=== PATIENT | female | born 1980 | race American Indian/Alaskan Native ===

== ENCOUNTER 2016-05-24 12:55 | Emergency (ER) | payer MEDICAID ==
[2016-05-24 13:14] VITALS: BP 127/95
--- NOTE | 2016-05-24 13:56 | Emergency Department Report ---
Entered by POLLY LAI, acting as scribe for SONIDO CARBALLO NP. Chief Complaint: Dyspnea/Respdistress Stated Complaint: BACK PAIN/DIFF BREATHING/FINGERS TINGLING - HPI History of Present Illness: Patient with a PMHx of DVT and PE presents to the ED c/o left back pain. Notes pain worsens with inspiration and expiration. Denies chest pain and SOB. - ROS Review of Systems: All other systems reviewed are negative unless stated in HPI above. - Exam Vital Signs: Vital Signs 05/24/16 13:12 Temperature 98.4 F Pulse Rate 75 Respiratory 16 Rate Blood Pressure 127/95 O2 Sat by Pulse 100 Oximetry Physical Exam: General: alert and oriented x 3 MSE screening note: Focused history and physical exam performed. Due to findings the following was ordered: HX PE AND DVT SCHEDULED FOR FILTER NEXT MONTH HAVING VAG BLEED FOR MONTHS THEY STARTED HER ON NUMEROUS HORMONES AND TRIED SEVERAL STILL BLEEDING SO SURG NEXT WEEK A/C ANEMIA PLEURTIC CP ST SAT OK DISCUSSED W DR JANSEN ED Medical Decision Making - Medical Decision Making Patient seen by provider in triage area. ED Disposition for MSE Condition: Stable This documentation as recorded by the scribe,POLLY LAI,accurately reflects the service I personally performed and the decisions made by me,SONIDO ARRIAGA NP.
[2016-05-24 14:41] LABS: Basophils % (Auto) 0.7 % (0.0-1.8); Eosinophils % (Auto) 3.8 % (0.0-4.3); Hematocrit 37.2 % (30.3-42.9); Mean Corpuscular HGB Conc 32 % (30-34); Mean Corpuscular Hemoglobin 27 pg (28-32); Mean Corpuscular Volume 83 fl (79-97); Platelet Count 349 K/mm3 (140-440); Red Blood Count 4.47 M/mm3 (3.65-5.03); Red Cell Distribution Width 14.6 % (13.2-15.2); White Blood Count 6.3 K/mm3 (4.5-11.0)
[2016-05-24 14:52] LABS: INR 0.99 (0.87-1.13); Partial Thromboplastin Time 32.4 Sec. (24.2-36.6)
[2016-05-24 15:02] LABS: Iron 33 ug/dL (37-170); Total Iron Binding Capacity 326 mcg/dL (250-450)
[2016-05-24 15:03] LABS: Alanine Aminotransferase 14 units/L (7-56); Albumin/Globulin Ratio 1.2 %; Alkaline Phosphatase 52 units/L (35-129); Anion Gap 17 mmol/L; BUN/Creatinine Ratio 6.66; Bilirubin,Total 0.4 mg/dL (0.1-1.2); Blood Urea Nitrogen 6 mg/dL (7-17); Calcium 9.3 mg/dL (8.4-10.2); Carbon Dioxide 23 mmol/L (22-30); Chloride 102.8 mmol/L (98-107); Glucose 122 mg/dL (65-100); Potassium 3.8 mmol/L (3.6-5.0); Sodium 139 mmol/L (137-145); Total Protein 7.4 g/dL (6.3-8.2)
== END 2016-05-24 17:40 | disposition left against medical advice (07) ==
LOC: ED 12:55
DX: M54.5 Low back pain (principal); R06.09 Other forms of dyspnea
CPT/HCPCS: 36415; 80053; 83550; 84484; 85025; 85610; 85730; 93005; 93010; 99283

== ENCOUNTER 2016-06-03 21:19 | Emergency (ER) | payer MEDICAID ==
--- NOTE | 2016-06-10 15:34 | ED Elopement Review ---
ED Pt Elopement review - Call Back decision Pt Call Back Decision: No action required
== END 2016-06-03 21:45 | disposition left against medical advice (07) ==
LOC: ED 21:19
DX: R10.9 Unspecified abdominal pain (principal); Z53.21 Procedure and treatment not carried out due to patient leaving prior to being seen by health care provider

== ENCOUNTER 2016-07-18 17:03 | Emergency (ER) | payer MEDICAID ==
--- NOTE | 2016-07-18 18:25 | Emergency Department Report ---
ED General Adult HPI - General Chief complaint: Urogenital-Female Stated complaint: PINCHING PAIN UNDER LT BREAST/NAUSEA Time Seen by Provider: 07/18/16 18:17 Source: patient Mode of arrival: Ambulatory Limitations: No Limitations - History of Present Illness Initial comments: Patient reports a pinching pain under the left breast that started two days ago. She also reports starting back on Lovenox 150 mg daily two days ago after not having Lovenox prescription for two weeks pending prior authorization from the insurance company. She has a history of DVTs' in the right lower extremity the last three years. She also reports a dry cough that started one week ago MD Complaint: chest pain Onset/Timin -: days(s) Location: chest Radiation: non-radiation Severity scale (0 -10): 0 Quality: other (pinching) Consistency: constant Improves with: none Worsens with: none Associated Symptoms: chest pain, cough. denies: confusion, diaphoresis, fever/ chills, headaches, loss of appetite, malaise, nausea/vomiting, rash, seizure, shortness of breath, syncope, weakness Treatments Prior to Arrival: other (Lovenox) - Related Data Home Medications Medication Instructions Recorded Confirmed Last Taken LORazepam [Ativan] 0.5 mg PO BID PRN 03/07/15 03/20/15 03/04/15 1mg busPIRone [Buspar] 10 mg PO TID 03/07/15 03/20/15 03/06/15 10mg Enoxaparin [Lovenox] 150 mg SQ BID 03/20/15 03/20/15 Unknown Previous Rx's Medication Instructions Recorded Last Taken Type predniSONE [Deltasone] 20 mg PO BID #10 tab 03/21/15 Unknown Rx Acetaminophen [Mapap] 500 mg PO QID #30 capsule 07/18/16 Unknown Rx guaiFENesin/DEXTROMETHORPHAN 1 each PO BID #10 tbmp.12hr 07/18/16 Unknown Rx [Mucinex Dm ER 1,200-60 mg Tab] Allergies Allergy/AdvReac Type Severity Reaction Status Date / Time iron dextran complex Allergy Severe Swelling Verified 01/04/15 23:30 carbamazepine [From Tegretol] Allergy Angioedema Verified 03/07/15 00:19 Iodinated Contrast Media - Allergy Rash Verified 01/04/15 23:30 IV Dye ED Review of Systems ROS: Stated complaint: PINCHING PAIN UNDER LT BREAST/NAUSEA Other details as noted in HPI Constitutional: denies: chills, diaphoresis, fever, malaise, weakness Eyes: denies: eye pain ENT: denies: ear pain, throat pain, dental pain, hearing loss, epistaxis Respiratory: cough. denies: orthopnea, shortness of breath, SOB with exertion, SOB at rest, stridor, wheezing Cardiovascular: chest pain. denies: palpitations, dyspnea on exertion, orthopnea, edema, syncope, paroxysmal nocturnal dyspnea Gastrointestinal: denies: abdominal pain, nausea, vomiting, diarrhea, constipation Musculoskeletal: denies: back pain, joint swelling, arthralgia, myalgia Skin: denies: rash, lesions Neurological: denies: headache, weakness, numbness, paresthesias, confusion Psychiatric: denies: anxiety, depression Hematological/Lymphatic: denies: easy bleeding, easy bruising, swollen glands ED Past Medical Hx - Past Medical History Previous Medical History?: Yes Hx CVA: Yes Hx Congestive Heart Failure: No Hx Diabetes: No Hx Deep Vein Thrombosis: Yes Hx Pulmonary Embolism: Yes Hx Psychiatric Treatment: Yes (bipolar disorder) Hx Asthma: No Hx COPD: No Additional medical history: Iron deficency anemia. ? LUPUS (uncertain of diagonsis) - Surgical History Past Surgical History?: Yes Hx Cholecystectomy: Yes Additional Surgical History: endometrial polyps - Social History Smoking Status: Former Smoker Substance Use Type: Prescribed - Medications Home Medications: Home Medications Medication Instructions Recorded Confirmed Last Taken Type LORazepam [Ativan] 0.5 mg PO BID PRN 03/07/15 03/20/15 03/04/15 History 1mg busPIRone [Buspar] 10 mg PO TID 03/07/15 03/20/15 03/06/15 History 10mg Enoxaparin [Lovenox] 150 mg SQ BID 03/20/15 03/20/15 Unknown History predniSONE [Deltasone] 20 mg PO BID #10 tab 03/21/15 Unknown Rx Acetaminophen [Mapap] 500 mg PO QID #30 capsule 07/18/16 Unknown Rx guaiFENesin/DEXTROMETHORPHAN 1 each PO BID #10 tbmp.12hr 07/18/16 Unknown Rx [Mucinex Dm ER 1,200-60 mg Tab] ED Physical Exam - General Limitations: No Limitations General appearance: alert, in no apparent distress - Head Head exam: Present: atraumatic, normocephalic, normal inspection - Eye Eye exam: Present: normal appearance, PERRL, EOMI Pupils: Present: normal accommodation - ENT ENT exam: Present: normal exam, normal orophraynx, mucous membranes moist. Absent: mucous membranes dry - Neck Neck exam: Present: normal inspection, full ROM. Absent: tenderness, meningismus, lymphadenopathy, thyromegaly - Respiratory Respiratory exam: Present: normal lung sounds bilaterally, chest wall tenderness (left chest wall beneath left breast). Absent: respiratory distress , wheezes, rales, rhonchi, stridor, accessory muscle use, decreased breath sounds, prolonged expiratory - Cardiovascular Cardiovascular Exam: Present: regular rate, normal rhythm, normal heart sounds. Absent: systolic murmur, gallop, clicks, JVD, S3, S4 - Expanded Cardiovascular Exam Expanded Peripheral pulses: 2+: Carotid (R), Carotid (L), Radial (R), Radial (L), Femoral (R), Femoral (L), Posterior Tibialis (R), Posterior Tibialis (L), Dorsalis Pedis (R), Dorsalis Pedis (L) - GI/Abdominal GI/Abdominal exam: Present: soft, normal bowel sounds. Absent: distended, tenderness, guarding, rigid - Extremities Exam Extremities exam: Present: normal inspection, full ROM, normal capillary refill. Absent: tenderness, pedal edema, joint swelling - Back Exam Back exam: Present: normal inspection, full ROM. Absent: CVA tenderness (R), CVA tenderness (L) - Neurological Exam Neurological exam: Present: alert, oriented X3, CN II-XII intact, normal gait, reflexes normal. Absent: motor sensory deficit - Psychiatric Psychiatric exam: Present: normal affect, normal mood - Skin Skin exam: Present: warm, dry, intact, normal color. Absent: rash ED Course Vital Signs 07/18/16 07/18/16 07/18/16 17:14 19:30 21:05 Temperature 98.2 F Pulse Rate 92 H 83 Respiratory 16 18 16 Rate Blood Pressure 110/81 Blood Pressure 111/75 [Left] O2 Sat by Pulse 100 98 Oximetry - Reevaluation(s) Reevaluation #1: 07/18/16 19:49 laboratory and radiology studies ordered ED Medical Decision Making - Lab Data Result diagrams: 07/18/16 19:04 07/18/16 19:04 Lab Results 07/18/16 07/18/16 Range/Units 19:04 19:04 WBC 6.3 (4.5-11.0) K/mm3 RBC 4.57 (3.65-5.03) M/mm3 Hgb 11.8 (10.1-14.3) gm/dl Hct 37.1 (30.3-42.9) % MCV 81 (79-97) fl MCH 26 L (28-32) pg MCHC 32 (30-34) % RDW 15.3 H (13.2-15.2) % Plt Count 337 (140-440) K/mm3 Carbon Dioxide 27 (22-30) mmol/L BUN 7 (7-17) mg/dL Creatinine 0.8 (0.7-1.2) mg/dL Estimated GFR > 60 ml/min BUN/Creatinine Ratio 8.75 % Glucose 94 (65-100) mg/dL Calcium 9.0 (8.4-10.2) mg/dL Total Bilirubin 0.70 (0.1-1.2) mg/dL AST 18 (5-40) units/L ALT 16 (7-56) units/L Alkaline Phosphatase 48 (35-129) units/L Total Creatine Kinase 335 H (30-135) units/L Troponin T < 0.010 (0.00-0.029) ng/mL Total Protein 6.6 (6.3-8.2) g/dL Albumin 4.0 (3.9-5) g/dL Albumin/Globulin Ratio 1.5 % - EKG Data EKG shows normal: sinus rhythm Rate: normal - EKG Data When compared to previous EKG there are: no significant change 07/18/16 21:00 No STEMI - Radiology Data Radiology results: image reviewed HISTORY: left chest pain/ hx DVT COMPARISON: 04/17/2016 FINDINGS: Heart and pericardium: Normal. Thoracic aorta: No aneurysm or dissection. Pulmonary vasculature: Normal. Lymph nodes: No enlarged thoracic lymph nodes. Lungs: There is a 3 millimeter nodule at the right posterior costophrenic sulcus. No infiltrates are seen. Pleural space: No effusion, thickening, or pneumothorax. Musculoskeletal structures: No significant abnormality. Upper abdominal structures: There is stable coarse calcification in the right hepatic lobe. IMPRESSION: No evidence of pulmonary emboli. There is coarse calcification in the right hepatic lobe, of uncertain etiology. No enhancement is seen. If there is concern for hepatic pathology, dedicated imaging could be obtained. - Medical Decision Making During the course of ED, laboratory and radiology studies were ordered. The EKG revealed no ST depression or elevation. The imaging study showed no evidence of pulmonary emboli. Laboratory studies were unremarkable. Patient was sent home with a prescription for Tylenol ES and Mucinex DM, instructed to follow up with her PCP as scheduled. She verbalized understanding - Differential Diagnosis Chest Pain, PE Critical care attestation.: If time is entered above; I have spent that time in minutes in the direct care of this critically ill patient, excluding procedure time. ED Disposition Clinical Impression: Chest pain Qualifiers: Chest pain type: other chest pain Qualified Code(s): R07.89 - Other chest pain Disposition: DC-01 TO HOME OR SELFCARE Is pt being admited?: No Does the pt Need Aspirin: No Condition: Stable Instructions: Chest Pain (ED) Additional Instructions: Take medication as directed. Follow up with your PCP as scheduled Prescriptions: Acetaminophen [Mapap] 500 mg PO QID #30 capsule guaiFENesin/DEXTROMETHORPHAN [Mucinex Dm ER 1,200-60 mg Tab] 1 each PO BID #10 tbmp.12hr Referrals: PRIMARY CARE, [Primary Care Provider] - 3-5 Days Forms: Work/School Release Form(ED) Time of Disposition: 20:59
[2016-07-18 19:23] LABS: Hematocrit 37.1 % (30.3-42.9); Hemoglobin 11.8 gm/dl (10.1-14.3); Mean Corpuscular HGB Conc 32 % (30-34); Mean Corpuscular Volume 81 fl (79-97); Platelet Count 337 K/mm3 (140-440); Red Blood Count 4.57 M/mm3 (3.65-5.03); Red Cell Distribution Width 15.3 % (13.2-15.2); White Blood Count 6.3 K/mm3 (4.5-11.0)
[2016-07-18 19:24] LABS: Mean Corpuscular Hemoglobin 26 pg (28-32)
[2016-07-18 19:39] LABS: Alanine Aminotransferase 16 units/L (7-56); Albumin/Globulin Ratio 1.5 %; Alkaline Phosphatase 48 units/L (35-129); Anion Gap 16 mmol/L; BUN/Creatinine Ratio 8.75; Blood Urea Nitrogen 7 mg/dL (7-17); Carbon Dioxide 27 mmol/L (22-30); Chloride 104.3 mmol/L (98-107); Creatine Kinase 335 units/L (30-135); Glucose 94 mg/dL (65-100); Potassium 4.7 mmol/L (3.6-5.0); Sodium 143 mmol/L (137-145); Total Protein 6.6 g/dL (6.3-8.2)
[2016-07-18] MEDS: NACL ONE (20:27)
--- NOTE | 2016-07-18 20:44 | Cat Scan Report ---
FINAL REPORT PROCEDURE: CT ANGIO CHEST TECHNIQUE: Computerized tomographic angiography of the chest was performed after the IV injection of iodinated nonionic contrast including image processing. The image data was postprocessed using 2-dimensional multiplanar reformatted (MPR) and 3-dimensional (MIP and/or volume rendered) techniques. HISTORY: left chest pain/ hx DVT COMPARISON: 04/17/2016 FINDINGS: Heart and pericardium: Normal. Thoracic aorta: No aneurysm or dissection. Pulmonary vasculature: Normal. Lymph nodes: No enlarged thoracic lymph nodes. Lungs: There is a 3 millimeter nodule at the right posterior costophrenic sulcus. No infiltrates are seen. Pleural space: No effusion, thickening, or pneumothorax. Musculoskeletal structures: No significant abnormality. Upper abdominal structures: There is stable coarse calcification in the right hepatic lobe. IMPRESSION: No evidence of pulmonary emboli. There is coarse calcification in the right hepatic lobe, of uncertain etiology. No enhancement is seen. If there is concern for hepatic pathology, dedicated imaging could be obtained.
[2016-07-18 21:07] VITALS: BP 111/75
== END 2016-07-18 21:05 | disposition home or self-care (01) ==
LOC: ED 17:03
DX: R07.89 Other chest pain (principal); Z86.73 Personal history of transient ischemic attack (TIA), and cerebral infarction without residual deficits; Z86.711 Personal history of pulmonary embolism; Z87.891 Personal history of nicotine dependence
CPT/HCPCS: 36415; 71275; 80053; 82550; 84484; 85027; 93005; 93010; 99284; Q9967

== ENCOUNTER 2016-08-31 15:30 | Emergency (ER) | payer MEDICAID, OTHER ==
--- NOTE | 2016-08-31 15:57 | Emergency Department Report ---
Chief Complaint: Arrhythmia/Palpitations Stated Complaint: TACHYCARDIA/SOB/COUGH Time Seen by Provider: 08/31/16 15:53 - HPI History of Present Illness: PT c/o palpitations since last night. PT States she has a hx of PEs. PT states she switched from Lovenox to Eliquis 3 days ago. - ROS Review of Systems: + mild sob - chest pain - Exam Vital Signs: Vital Signs 08/31/16 15:46 Temperature 98.1 F Respiratory 20 Rate Blood Pressure 156/90 O2 Sat by Pulse 100 Oximetry Physical Exam: PT looks well, non toxic steady gait + tachycardia MSE screening note: Focused history and physical exam performed. Due to findings the following was ordered: ekg, labs, xr ED Disposition for MSE Condition: Stable
[2016-08-31 16:18] LABS: Basophils % (Auto) 0.6 % (0.0-1.8); Eosinophils % (Auto) 0.7 % (0.0-4.3); Hematocrit 36.8 % (30.3-42.9); Mean Corpuscular HGB Conc 33 % (30-34); Mean Corpuscular Hemoglobin 27 pg (28-32); Mean Corpuscular Volume 82 fl (79-97); Platelet Count 372 K/mm3 (140-440); Red Blood Count 4.51 M/mm3 (3.65-5.03); Red Cell Distribution Width 15.4 % (13.2-15.2); White Blood Count 7.5 K/mm3 (4.5-11.0)
[2016-08-31 16:29] LABS: INR 1.01 (0.87-1.13)
[2016-08-31 16:30] LABS: Partial Thromboplastin Time 31.2 Sec. (24.2-36.6)
[2016-08-31 16:37] LABS: Blood Urea Nitrogen 8 mg/dL (7-17); Calcium 9.1 mg/dL (8.4-10.2); Carbon Dioxide 24 mmol/L (22-30); Glucose 110 mg/dL (65-100)
[2016-08-31 16:38] LABS: Anion Gap 18 mmol/L; Chloride 100.7 mmol/L (98-107); Potassium 3.9 mmol/L (3.6-5.0); Sodium 139 mmol/L (137-145)
--- NOTE | 2016-08-31 16:47 | Emergency Department Report ---
ED Palpitations HPI - General Chief Complaint: Arrhythmia/Palpitations Stated Complaint: TACHYCARDIA/SOB/COUGH Time Seen by Provider: 08/31/16 15:53 Source: patient Mode of arrival: Ambulatory Limitations: No Limitations - History of Present Illness MD Complaint: rapid heart beat, "heart racing", irregular heart beat -: Last night Context: occured during rest Arrythmia History: on anti-coagulants Associated Symptoms: chest pain, shortness of breath. denies: syncope, near- syncope, nausea/vomiting - Related Data Home Medications Medication Instructions Recorded Confirmed Last Taken Apixaban [Eliquis] 2.5 mg PO QAM 08/31/16 08/31/16 08/31/16 Propranolol [Inderal] 10 mg PO DAILY 08/31/16 08/31/16 08/31/16 clonazePAM [ Klonopin] 0.5 mg PO BID 08/31/16 08/31/16 08/31/16 Allergies Allergy/AdvReac Type Severity Reaction Status Date / Time iron dextran complex Allergy Severe Swelling Verified 01/04/15 23:30 carbamazepine [From Tegretol] Allergy Angioedema Verified 03/07/15 00:19 Iodinated Contrast Media - Allergy Rash Verified 01/04/15 23:30 IV Dye ED Review of Systems ROS: Stated complaint: TACHYCARDIA/SOB/COUGH Other details as noted in HPI Comment: All other systems reviewed and negative Constitutional: denies: chills, diaphoresis, fever Respiratory: denies: cough, shortness of breath, SOB with exertion, wheezing Cardiovascular: palpitations. denies: chest pain, dyspnea on exertion, orthopnea Gastrointestinal: denies: nausea, vomiting Neurological: denies: headache ED Past Medical Hx - Past Medical History Previous Medical History?: Yes Hx CVA: Yes Hx Congestive Heart Failure: No Hx Diabetes: No Hx Deep Vein Thrombosis: Yes Hx Pulmonary Embolism: Yes Hx Psychiatric Treatment: Yes (bipolar disorder) Hx Asthma: No Hx COPD: No Additional medical history: Iron deficency anemia. ? LUPUS (uncertain of diagonsis). PE - Surgical History Past Surgical History?: Yes Hx Cholecystectomy: Yes Additional Surgical History: endometrial polyps - Social History Smoking Status: Never Smoker Substance Use Type: None - Medications Home Medications: Home Medications Medication Instructions Recorded Confirmed Last Taken Type Apixaban [Eliquis] 2.5 mg PO QAM 08/31/16 08/31/1608/31/17 History Propranolol [Inderal] 10 mg PO DAILY 08/31/16 08/31/16 08/31/16 History clonazePAM [ Klonopin] 0.5 mg PO BID 08/31/16 08/31/16 08/31/16 History ED Physical Exam - General Limitations: No Limitations General appearance: alert, in no apparent distress - Neck Neck exam: Present: normal inspection. Absent: tenderness, meningismus, thyromegaly - Respiratory Respiratory exam: Present: normal lung sounds bilaterally. Absent: respiratory distress, wheezes, rales, rhonchi - Cardiovascular Cardiovascular Exam: Present: tachycardia - GI/Abdominal GI/Abdominal exam: Present: soft. Absent: distended, tenderness, guarding - Extremities Exam Extremities exam: Absent: tenderness, normal capillary refill, pedal edema, calf tenderness - Neurological Exam Neurological exam: Present: alert, oriented X3, CN II-XII intact - Skin Skin exam: Present: warm, intact ED Course Vital Signs 08/31/16 15:46 Temperature 98.1 F Respiratory 20 Rate Blood Pressure 156/90 O2 Sat by Pulse 100 Oximetry - Reevaluation(s) Reevaluation #1: 08/31/16 20:04 Patient observed in the ER no arrythmia noticed on the lunchroom monitor. doppler rt LE is negative. VQ scan is normal. ED Medical Decision Making - Lab Data Result diagrams: 08/31/16 16:05 08/31/16 16:05 Critical care attestation.: If time is entered above; I have spent that time in minutes in the direct care of this critically ill patient, excluding procedure time. ED Disposition Clinical Impression: Chest pain, Palpitation Disposition: DC-01 TO HOME OR SELFCARE Is pt being admited?: No Does the pt Need Aspirin: No Condition: Stable Instructions: Chest Pain (ED) Referrals: PRIMARY CARE,MD [Primary Care Provider] - 3-5 Days
--- NOTE | 2016-08-31 19:04 | Nuclear Medicine Report ---
FINAL REPORT EXAM: NM LUNG SCAN PERF/VENT HISTORY: SOB H/O PE TECHNIQUE: Ventilation-perfusion scan Perfusion study performed following intravenous administration 5 millicuries technetium 99 MAA The ventilation study was performed with 15 millicuries of seen on Xe-133 PRIORS: None. FINDINGS: On perfusion study there is homogeneous distribution of the radiotracer. No perfusion abnormalities identified. On ventilation study there is homogeneous distribution normal washout. IMPRESSION: Normal. No scintigraphic evidence for acute pulmonary embolus
[2016-08-31 20:18] VITALS: BP 102/65
--- NOTE | 2016-09-01 07:33 | XRay Report ---
ROUTINE CHEST, TWO VIEWS: HISTORY: Palpitations. The trachea, heart, mediastinal contour, lung fuentes and bony thorax are unremarkable. No change since 10/1215. IMPRESSION: Unremarkable chest x-ray.
--- NOTE | 2016-09-01 08:00 | Vascular Lab Report ---
Right Lower Extremity Venous Duplex Study: Reason for Exam: Shortness of breath/history of pulmonary embolism. Comments on the Right: All veins visualized are freely compressible without evidence of internal echogenicity. Flow is spontaneous and phasic throughout. No evidence of acute or chronic thrombus is seen in any of the vessels visualized. Comments on the Left: A limited duplex study was done of the proximal veins of the left lower extremity. All veins visualized are freely compressible without evidence of internal echogenicity. Flow is spontaneous and phasic throughout. No evidence of acute or chronic thrombus is seen in any of the vessels visualized. Impression: No evidence of acute or chronic deep venous thrombosis in the right lower extremity.
== END 2016-08-31 20:40 | disposition home or self-care (01) ==
LOC: ED 15:30
DX: R07.9 Chest pain, unspecified (principal); R00.2 Palpitations; F31.9 Bipolar disorder, unspecified; D50.9 Iron deficiency anemia, unspecified; Z86.73 Personal history of transient ischemic attack (TIA), and cerebral infarction without residual deficits; Z86.718 Personal history of other venous thrombosis and embolism; Z91.041 Radiographic dye allergy status; Z88.8 Allergy status to other drugs, medicaments and biological substances; Z86.711 Personal history of pulmonary embolism
CPT/HCPCS: 36415; 71020; 78582; 80048; 84484; 85025; 85610; 85730; 93005; 93010; 93971; 99285; A9540; A9558

== ENCOUNTER 2016-11-02 11:28 | Emergency (ER) | payer SELFPAY ==
--- NOTE | 2016-11-02 12:06 | Emergency Department Report ---
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 PT states she feels her heart racing when she drives. - ROS Review of Systems: + anxiety + heart racing - Exam Vital Signs: Vital Signs 11/02/16 11:57 Temperature 98 F Pulse Rate 88 Respiratory 18 Rate Blood Pressure 118/77 O2 Sat by Pulse 100 Oximetry Physical Exam: pt alert and appropriate gcs 15 rrr MSE screening note: Focused history and physical exam performed. Due to findings the following was ordered: labs, ekg ED Disposition for MSE Condition: Stable
[2016-11-02 12:53] LABS: Basophils % (Auto) 0.8 % (0.0-1.8); Eosinophils % (Auto) 1.5 % (0.0-4.3); Hematocrit 38.2 % (30.3-42.9); Hemoglobin 12.3 gm/dl (10.1-14.3); Mean Corpuscular HGB Conc 32 % (30-34); Mean Corpuscular Hemoglobin 26 pg (28-32); Mean Corpuscular Volume 81 fl (79-97); Platelet Count 339 K/mm3 (140-440); Red Cell Distribution Width 15.1 % (13.2-15.2); White Blood Count 6.7 K/mm3 (4.5-11.0)
[2016-11-02 13:14] LABS: Alanine Aminotransferase 13 units/L (7-56); Albumin 3.9 g/dL (3.9-5); Albumin/Globulin Ratio 1.1 %; Alkaline Phosphatase 62 units/L (35-129); Anion Gap 18 mmol/L; BUN/Creatinine Ratio 11.42; Blood Urea Nitrogen 8 mg/dL (7-17); Calcium 9.2 mg/dL (8.4-10.2); Carbon Dioxide 22 mmol/L (22-30); Chloride 104.2 mmol/L (98-107); Glucose 103 mg/dL (65-100); Potassium 4.2 mmol/L (3.6-5.0); Sodium 140 mmol/L (137-145); Total Protein 7.3 g/dL (6.3-8.2)
[2016-11-02 15:55] VITALS: BP 112/69
[2016-11-02 16:08] LABS: Bilirubin,Urine NEG (Negative); Blood,Urine NEG (Negative); Ketones,Urine NEG (Negative); Leukocyte Esterase,Urine TR (Negative); Mucus,Urine FEW /HPF; Nitrite,Urine NEG (Negative); Protein,Urine <15 mg/dL mg/dL (Negative); RBC,Urine < 1.0 /HPF (0.0-6.0); Urobilinogen,Urine < 2.0 mg/dL (<2.0)
[2016-11-02 16:20] LABS: Urine Drugs of Abuse Note Disclamer
== END 2016-11-02 17:46 | disposition left against medical advice (07) ==
LOC: ED 11:28
DX: F41.9 Anxiety disorder, unspecified (principal); R00.0 Tachycardia, unspecified; Z53.21 Procedure and treatment not carried out due to patient leaving prior to being seen by health care provider
CPT/HCPCS: 36415; 80053; 80307; 81001; 84443; 84484; 84703; 85025; 93005; 93010; 99283

== ENCOUNTER 2017-01-19 11:00 | Outpatient (CLI) | payer MEDICAID | END 2017-01-19 11:01 | disposition home or self-care (01) | LOC: SLR 11:00 | PROVIDERS: ATTEND Otolaryngology | DX: G47.30 Sleep apnea, unspecified (principal); I27.20 Pulmonary hypertension, unspecified | CPT/HCPCS: G0399 ==

== ENCOUNTER 2017-02-19 18:39 | Emergency (ER) | payer MEDICAID ==
[2017-02-19 19:17] VITALS: BP 118/78
[2017-02-19 19:51] LABS: Basophils # (Auto) 0.1 K/mm3 (0.0-0.1); Basophils % (Auto) 0.8 % (0.0-1.8); Eosinophils # (Auto) 0.1 K/mm3 (0.0-0.4); Hematocrit 37.6 % (30.3-42.9); Hemoglobin 12.3 gm/dl (10.1-14.3); Lymphocytes # (Auto) 2.1 K/mm3 (1.2-5.4); Lymphocytes % (Auto) 27.8 % (13.4-35.0); Mean Corpuscular HGB Conc 33 % (30-34); Mean Corpuscular Hemoglobin 27 pg (28-32); Mean Corpuscular Volume 82 fl (79-97); Monocytes # (Auto) 0.6 K/mm3 (0.0-0.8); Monocytes % (Auto) 7.7 % (0.0-7.3); Platelet Count 329 K/mm3 (140-440); Red Blood Count 4.61 M/mm3 (3.65-5.03); Red Cell Distribution Width 14.4 % (13.2-15.2)
[2017-02-19 20:02] LABS: INR 0.9 (0.87-1.13)
[2017-02-19 20:03] LABS: Partial Thromboplastin Time 29.8 Sec. (24.2-36.6)
[2017-02-19 20:11] LABS: BUN/Creatinine Ratio 13; Blood Urea Nitrogen 9 mg/dL (7-17); Calcium 9.4 mg/dL (8.4-10.2); Hemolysis Index 14
== END 2017-02-19 21:20 | disposition left against medical advice (07) ==
LOC: ED 18:39
DX: R51 Headache (principal); R53.1 Weakness; Z53.21 Procedure and treatment not carried out due to patient leaving prior to being seen by health care provider
CPT/HCPCS: 36415; 80048; 84484; 85025; 85379; 85610; 85730; 93005; 93010

== ENCOUNTER → 2017-02-21 | Outpatient (CLI) | payer MEDICAID | LOC: SLR 11:00 | PROVIDERS: ATTEND Specialist | DX: G47.33 Obstructive sleep apnea (adult) (pediatric) (principal) | CPT/HCPCS: 95811 ==

== ENCOUNTER 2017-05-03 21:41 | Emergency (ER) | payer MEDICAID ==
[2017-05-03 22:01] VITALS: BP 135/79
== END 2017-05-04 03:45 | disposition left against medical advice (07) ==
LOC: ED 21:41
DX: R53.83 Other fatigue (principal); R42 Dizziness and giddiness; Z53.21 Procedure and treatment not carried out due to patient leaving prior to being seen by health care provider

== ENCOUNTER 2017-07-01 12:40 | Emergency (ER) | payer MEDICAID ==
[2017-07-01 12:49] VITALS: BP 133/85
[2017-07-01] MEDS ORDERED: ULTRAM PO ONE (16:22)
--- NOTE | 2017-07-01 16:33 | Emergency Department Report ---
HPI - General Chief Complaint: Extremity Problem,Nontraumatic Time Seen by Provider: 07/01/17 16:03 - HPI HPI: The patient is a 37-year-old female well known to his department, with a history of anxiety attacks, and who presents for evaluation of palpitations. The patient states that she is best palpitations since 2 AM this morning, pounding in quality, mild in severity, constant for hours, several resolving, currently completely resolved. She also has a secondary complaint of recurrence of right lower leg pain for the past 2 days, intermittent, mild, crampy in quality. The patient denies trauma to the chest or leg, fever, cough , dyspnea, chest pain, syncope, hemoptysis, abdominal pain, nausea, vomiting, dysuria, hematuria. ED Past Medical Hx - Past Medical History Hx CVA: Yes Hx Congestive Heart Failure: No Hx Diabetes: No Hx Deep Vein Thrombosis: Yes Hx Pulmonary Embolism: Yes Hx Psychiatric Treatment: Yes (bipolar disorder) Hx Asthma: No Hx COPD: No Additional medical history: Iron deficency anemia. ? LUPUS (uncertain of diagonsis). PE, endometriosis - Surgical History Hx Cholecystectomy: Yes Additional Surgical History: endometrial polyps - Social History Smoking Status: Never Smoker Substance Use Type: None - Medications Home Medications: Home Medications Medication Instructions Recorded Confirmed Last Taken Type Apixaban [Eliquis] 2.5 mg PO QAM 08/31/16 08/31/16 08/31/16 History Propranolol [Inderal] 10 mg PO DAILY 08/31/16 08/31/16 08/31/16 History clonazePAM [ Klonopin] 0.5 mg PO BID 08/31/16 08/31/16 08/31/16 History HYDROcodone/APAP 5-325 [[place] 1 each PO Q6HR PRN #10 tablet 07/01/17 Unknown Rx 5/325] ED Review of Systems ROS: Stated complaint: BILATERAL LEG SWELLING Other details as noted in HPI Constitutional: denies: fever ENT: denies: throat or neck pain Respiratory: denies: cough, shortness of breath Cardiovascular: reports plapitations denies: chest pain Endocrine: denies unexplained weight loss or gain Gastrointestinal: denies: abdominal pain, nausea Genitourinary: denies: dysuria Musculoskeletal: reports left leg pain and leg swelling Skin: denies: rash Neurological: denies: headache Hematological/Lymphatic: denies: easy bleeding or easy bruising Psych: denies sadness or hopelessness Physical Exam - Physical Exam Vital Signs: Vital Signs 07/01/17 12:45 Temperature 98.6 F Pulse Rate 82 Respiratory 16 Rate Blood Pressure 133/85 O2 Sat by Pulse 95 Oximetry Physical Exam: General: well-nourished, well-developed, no acute distress Head: Normocephalic, atraumatic Eyes: normal sclera ENT: Mucous membranes are pink and moist Neck: trachea midline, neck supple, No neck stiffness, no cervical adenopathy Respiratory: Breath sounds equal bilaterally, no wheezing, rales, or rhonchi Cardio: S1 and S2 present, no murmurs, rubs, gallops, capillary refill is brisk Abdomen: Normoactive bowel sounds, soft abdomen, no rigidity, no guarding or rebound tenderness Musc: pitting edema, mild right calf tenderness to palpation present, no ecchymosis, bruising, redness, swelling, fluctuance, leg compartments are soft and pliable, no signs of DVT or compartment syndrome Skin: No rash Neuro: no facial drooping, normal speech Psych: Normal affect ED Course Vital Signs 07/01/17 12:45 Temperature 98.6 F Pulse Rate 82 Respiratory 16 Rate Blood Pressure 133/85 O2 Sat by Pulse 95 Oximetry ED Medical Decision Making - Medical Decision Making The patient was seen and examined by myself. On initial evaluation, the patient was found to be in no distress. Evaluation orders were placed. Vital signs are all within normal limits. The patient is given pain medicine. Exam was negative for any signs suggestive of acute DVT. As patient is on a blood thinner, she will receive US of the right leg in the morning. As the patient has all normal vital signs, and has not spent any chest pain or dyspnea throughout today, and only has a space palpitations which resolved prior to arrival, blood work would not be done at this time. The patient was reevaluated and reported that their symptoms were improved. The patient is stable for discharge with outpatient follow-up. The patient is given follow-up and return instructions. The patient expressed understanding and agreed with the plan. The patient is discharged in stable condition. Critical care attestation.: If time is entered above; I have spent that time in minutes in the direct care of this critically ill patient, excluding procedure time. ED Disposition Clinical Impression: Pain in right lower leg, Heart palpitations Disposition: DC-01 TO HOME OR SELFCARE Is pt being admited?: No Does the pt Need Aspirin: No Condition: Stable Instructions: Musculoskeletal Pain (ED), Palpitations (ED) Referrals: RICCI CALVIN MD [Primary Care Provider] - 3-5 Days Time of Disposition: 16:33
== END 2017-07-01 16:45 | disposition home or self-care (01) ==
LOC: ED 12:40
DX: R00.2 Palpitations (principal); M79.661 Pain in right lower leg
CPT/HCPCS: 99282

== ENCOUNTER 2017-08-03 11:12 | Emergency (ER) | payer MEDICAID ==
[2017-08-03 11:57] LABS: Basophils # (Auto) 0.1 K/mm3 (0.0-0.1); Basophils % (Auto) 0.7 % (0.0-1.8); Eosinophils # (Auto) 0.1 K/mm3 (0.0-0.4); Eosinophils % (Auto) 1.5 % (0.0-4.3); Hematocrit 35.8 % (30.3-42.9); Hemoglobin 11.4 gm/dl (10.1-14.3); Lymphocytes # (Auto) 2.1 K/mm3 (1.2-5.4); Lymphocytes % (Auto) 28.2 % (13.4-35.0); Mean Corpuscular HGB Conc 32 % (30-34); Mean Corpuscular Volume 78 fl (79-97); Monocytes # (Auto) 0.6 K/mm3 (0.0-0.8); Monocytes % (Auto) 8.2 % (0.0-7.3); Platelet Count 333 K/mm3 (140-440); Red Blood Count 4.61 M/mm3 (3.65-5.03); Red Cell Distribution Width 16.1 % (13.2-15.2)
[2017-08-03 11:58] LABS: Mean Corpuscular Hemoglobin 25 pg (28-32)
[2017-08-03 12:06] LABS: BUN/Creatinine Ratio 10; Blood Urea Nitrogen 8 mg/dL (7-17); Calcium 9.4 mg/dL (8.4-10.2); Hemolysis Index 1; INR 0.89 (0.87-1.13)
[2017-08-03 12:07] LABS: Partial Thromboplastin Time 29.2 Sec. (24.2-36.6)
--- NOTE | 2017-08-03 14:33 | Emergency Department Report ---
HPI - General Chief Complaint: Dyspnea/Respdistress Time Seen by Provider: 08/03/17 12:26 - HPI HPI: Room 3 The patient is a 37-year-old female presenting with a chief complaint of palpitations and syncope. The patient states for the past 2 months she's had intermittent palpitations. The patient states yesterday while at a hairdressers getting her hair done she began to feel weak and then palpitations and she denies syncopal episode. Patient states she lost consciousness for 8-9 seconds. After she came to she states she felt fatigued for approximately 2-3 hours and her symptoms resolved. Patient denied ever having chest pain with the palpitations but admits to some shortness of breath. The patient states she had a normal stress test 2 years ago but never had a cardiac catheterization Location: Cardiovascular system Duration: [See above] Quality: Palpitations, fatigue Severity: Moderate Modifying factors: [see above] Context: [see above] Mode of transportation: [not driving] ED Past Medical Hx - Past Medical History Hx CVA: Yes Hx Deep Vein Thrombosis: Yes () Hx Pulmonary Embolism: Yes (2004) Hx Psychiatric Treatment: Yes (bipolar disorder) Additional medical history: Iron deficency anemia. ? LUPUS (uncertain of diagonsis). PE, endometriosis - Surgical History Hx Cholecystectomy: Yes Additional Surgical History: endometrial ablation - Family History Family history: other (daughter has PSVT) - Social History Smoking Status: Never Smoker Substance Use Type: None (denies illicit drug use), Alcohol (occasional) - Medications Home Medications: Home Medications Medication Instructions Recorded Confirmed Last Taken Type Apixaban [Eliquis] 2.5 mg PO BID 08/31/16 08/03/17 08/02/17 History clonazePAM [ Klonopin] 0.5 mg PO BID 08/31/16 08/03/17 08/02/17 History Levothyroxine [Synthroid] 100 mcg PO QAM 08/03/17 08/03/17 08/02/17 History Pravastatin Sodium [Pravastatin] 10 mg PO QHS 08/03/17 08/03/17 08/02/17 History ED Review of Systems ROS: Stated complaint: RAPID HEART BEAT, JITTERY Other details as noted in HPI Physical Exam - Physical Exam Vital Signs: Vital Signs 08/03/17 08/03/17 08/03/17 11:22 12:01 12:05 Temperature 98.3 F 99.1 F Pulse Rate 84 81 76 Respiratory 16 23 22 Rate Blood Pressure 126/89 Blood Pressure 113/76 [Left] O2 Sat by Pulse 96 100 100 Oximetry 08/03/17 08/03/17 08/03/17 12:16 12:30 12:45 Temperature Pulse Rate 77 Respiratory 20 Rate Blood Pressure 113/74 113/74 112/67 Blood Pressure [Left] O2 Sat by Pulse 100 100 99 Oximetry 08/03/17 08/03/17 08/03/17 13:00 13:15 13:30 Temperature Pulse Rate 79 80 78 Respiratory 9 L 9 L 19 Rate Blood Pressure 106/68 115/70 112/72 Blood Pressure [Left] O2 Sat by Pulse 99 100 100 Oximetry 08/03/17 08/03/17 13:45 14:00 Temperature Pulse Rate 68 90 Respiratory 22 13 Rate Blood Pressure 113/67 113/67 Blood Pressure [Left] O2 Sat by Pulse 99 94 Oximetry ED Course Vital Signs 08/03/17 08/03/17 08/03/17 11:22 12:01 12:05 Temperature 98.3 F 99.1 F Pulse Rate 84 81 76 Respiratory 16 23 22 Rate Blood Pressure 126/89 Blood Pressure 113/76 [Left] O2 Sat by Pulse 96 100 100 Oximetry 08/03/17 08/03/17 08/03/17 12:16 12:30 12:45 Temperature Pulse Rate 77 Respiratory 20 Rate Blood Pressure 113/74 113/74 112/67 Blood Pressure [Left] O2 Sat by Pulse 100 100 99 Oximetry 08/03/17 08/03/17 08/03/17 13:00 13:15 13:30 Temperature Pulse Rate 79 80 78 Respiratory 9 L 9 L 19 Rate Blood Pressure 106/68 115/70 112/72 Blood Pressure [Left] O2 Sat by Pulse 99 100 100 Oximetry 08/03/17 08/03/17 13:45 14:00 Temperature Pulse Rate 68 90 Respiratory 22 13 Rate Blood Pressure 113/67 113/67 Blood Pressure [Left] O2 Sat by Pulse 99 94 Oximetry ED Medical Decision Making - Lab Data Result diagrams: 08/03/17 11:37 08/03/17 11:37 Laboratory Tests 08/03/17 08/03/17 08/03/17 11:37 11:37 11:37 WBC RBC Hgb Hct MCV MCH MCHC RDW Plt Count Lymph % (Auto) Dale % (Auto) Eos % (Auto) Baso % (Auto) Lymph # Dale # Eos # Baso # Seg Neutrophils % Seg Neutrophils # PT 12.5 INR 0.89 APTT 29.2 D-Dimer Sodium 140 Potassium 4.0 Chloride 104.9 Carbon Dioxide 28 Anion Gap 11 BUN 8 Creatinine 0.8 Estimated GFR > 60 BUN/Creatinine Ratio 10 Glucose 92 Calcium 9.4 HCG, Qual Negative 08/03/17 08/03/17 11:37 11:37 WBC 7.5 RBC 4.61 Hgb 11.4 Hct 35.8 MCV 78 L MCH 25 L MCHC 32 RDW 16.1 H Plt Count 333 Lymph % (Auto) 28.2 Dale % (Auto) 8.2 H Eos % (Auto) 1.5 Baso % (Auto) 0.7 Lymph # 2.1 Dale # 0.6 Eos # 0.1 Baso # 0.1 Seg Neutrophils % 61.4 Seg Neutrophils # 4.6 PT INR APTT D-Dimer 357.42 H Sodium Potassium Chloride Carbon Dioxide Anion Gap BUN Creatinine Estimated GFR BUN/Creatinine Ratio Glucose Calcium HCG, Qual CK, CK-MB, troponin and thyroid panel are pending at this time - EKG Data -: EKG Interpreted by Me EKG shows normal: sinus rhythm Rate: normal - EKG Data When compared to previous EKG there are: previous EKG unavailable Interpretation: nonspecific ST-T wave riya (T-wave inversions inferiorly) - Radiology Data Radiology results: pending (CT angiogram chest), image reviewed (chest x-ray, CT chest) interpreted by me: Chest x-ray-no focal infiltrates, no pneumothorax - Differential Diagnosis PSVT, dysrhythmia, PE, ACS, hyperthyroidism Critical care attestation.: If time is entered above; I have spent that time in minutes in the direct care of this critically ill patient, excluding procedure time. ED Disposition Clinical Impression: Palpitations, Syncope Disposition: OP ADMIT IP TO THIS HOSP Is pt being admited?: Yes Does the pt Need Aspirin: Yes Condition: Fair Instructions: Syncope (ED) Referrals: PRIMARY CARE,MD [Primary Care Provider] - 3-5 Days Time of Disposition: 15:13 (Hospitalist notified (Dr Galaviz). ck, ckmb, tro, thyroid panel CT angio chest report pending)
--- NOTE | 2017-08-03 14:55 | Cat Scan Report ---
CTA CHEST: HISTORY: Shortness of breath, palpitations, syncope. COMPARISON: none. TECHNIQUE: Helical CT in 1.25mm intervals following IV contrast. Pulmonary embolus protocol. Sagittal and coronal reformatted images. Rotational MIP images. FINDINGS: Contrast bolus is satisfactory. No pulmonary embolus is identified. Thyroid gland: Normal. Tracheobronchial tree: Normal. Esophagus: Normal. Heart: Normal. Pericardium: Normal. Mediastinum: Normal. Lung Villa: normal. Pleural Spaces: Normal. Musculoskeletal: Normal. IMPRESSION: No evidence for pulmonary embolus. Unremarkable CT chest with contrast.
[2017-08-03 15:19] LABS: Creatine Kinase MB 2.8 ng/mL (0.0-4.0)
[2017-08-03 15:29] LABS: Free T4 (Free Thyroxine) 1.02 ng/dL (0.76-1.46)
--- NOTE | 2017-08-03 16:54 | XRay Report ---
FINAL REPORT EXAM: XR CHEST ROUTINE 2V HISTORY: Shortness of breath TECHNIQUE: Frontal and lateral views of the chest. PRIORS: Chest x-ray August 31, 2016. FINDINGS: Cardiac silhouette is within normal limits. There is no effusion. There is no pneumothorax. There is no consolidation. There are no suspicious osseous lesions. IMPRESSION: No acute cardiopulmonary findings.
[2017-08-03 19:09] VITALS: BP 133/79
== END 2017-08-03 18:30 | disposition admitted as inpatient to this hospital (09) ==
LOC: ED 11:12
DX: R00.2 Palpitations (principal); R55 Syncope and collapse; Z86.718 Personal history of other venous thrombosis and embolism; Z86.711 Personal history of pulmonary embolism; F31.9 Bipolar disorder, unspecified; M32.9 Systemic lupus erythematosus, unspecified; Z90.49 Acquired absence of other specified parts of digestive tract
CPT/HCPCS: 36415; 71046; 71275; 80048; 82550; 82553; 84439; 84443; 84484; 84703; 85025; 85379; 85610; 85730; 93005; 93010; 99285; Q9967

== ENCOUNTER 2017-09-29 11:19 | Emergency (ER) | payer MEDICAID ==
[2017-09-29 11:45] VITALS: BP 115/71
[2017-09-29] MEDS ORDERED: TYLENOL PO ONE (12:26)
--- NOTE | 2017-09-29 12:35 | Emergency Department Report ---
Blank Doc - Documentation Documentation: Patient is a 37-year-old female who is on eloquent secondary to PACs who states she's had a headache for the last 2 days. Patient states that she woke up with headache. She does not have a history of headaches. Patient denies any fevers or neck stiffness cough, congestion light sensitivity or sensitivity to noise. He states the headache is global frontal greater than back and is throbbing 8 out of 10. On brief focused physical exam patient has no sinus tenderness is no meningeal signs pupils are equal reactive to light she is alert and oriented 3. S2 be done patient also have urinalysis and test performed the patient be reassessed.
[2017-09-29 13:35] LABS: Bilirubin,Urine NEG (Negative); Blood,Urine NEG (Negative); Color,Urine Yellow (Yellow); Mucus,Urine FEW /HPF; Protein,Urine <15 mg/dL mg/dL (Negative)
[2017-09-29 13:49] LABS: HCG Qualitative,Urine Negative (Negative)
== END 2017-09-29 15:50 | disposition left against medical advice (07) ==
LOC: ED 11:19
DX: R51 Headache (principal); Z53.21 Procedure and treatment not carried out due to patient leaving prior to being seen by health care provider
CPT/HCPCS: 81001; 81025

== ENCOUNTER 2018-01-27 10:50 | Emergency (ER) | payer OTHER ==
[2018-01-27 11:08] VITALS: BP 115/72
[2018-01-27] MEDS ORDERED: DELTASONE PO ONE (12:21)
[2018-01-27] MEDS ORDERED: BENADRYL PO ONE (12:22)
[2018-01-27] MEDS ORDERED: PEPCID PO ONE (12:22)
--- NOTE | 2018-01-27 12:23 | Emergency Department Report ---
ED Allergic Reaction HPI - General Chief complaint: Allergic Reaction Stated complaint: SKIN RASH ALL OVER BODY Time Seen by Provider: 01/27/18 12:19 Source: patient Mode of arrival: Ambulatory Limitations: No Limitations - History of Present Illness MD Complaint: allergic reaction, hives -: Sudden Exposure: unknown Symptoms: rash, itching Severity: mild Treatment Prior to Arrival: benadryl Previous Allergy History: none - Related Data Home Medications Medication Instructions Recorded Confirmed Last Taken Apixaban [Eliquis] 2.5 mg PO BID 08/31/16 08/03/17 08/02/17 clonazePAM [ Klonopin] 0.5 mg PO BID 08/31/16 08/03/17 08/02/17 Levothyroxine [Synthroid] 100 mcg PO QAM 08/03/17 08/03/17 08/02/17 Pravastatin Sodium [Pravastatin] 10 mg PO QHS 08/03/17 08/03/17 08/02/17 Previous Rx's Medication Instructions Recorded Last Taken Type Levothyroxine [Synthroid] 150 mcg PO QAM #30 tablet 11/29/17 Unknown Rx Famotidine [Pepcid] 40 mg PO DAILY #10 tablet 01/27/18 Unknown Rx diphenhydrAMINE [Benadryl CAP] 50 mg PO Q8HR PRN #20 capsule 01/27/18 Unknown Rx predniSONE [Deltasone] 60 mg PO DAILY 4 Days tablet 01/27/18 Unknown Rx Allergies Allergy/AdvReac Type Severity Reaction Status Date / Time iron dextran complex Allergy Severe Swelling Verified 05/03/17 21:58 carbamazepine [From Tegretol] Allergy Angioedema Verified 05/03/17 21:58 ED Review of Systems ROS: Stated complaint: SKIN RASH ALL OVER BODY Other details as noted in HPI Comment: All other systems reviewed and negative Constitutional: denies: chills, fever Eyes: denies: eye pain, eye discharge, vision change ENT: denies: ear pain, throat pain Respiratory: denies: cough, shortness of breath, wheezing Cardiovascular: denies: chest pain, palpitations Endocrine: no symptoms reported Gastrointestinal: denies: abdominal pain, nausea, diarrhea Genitourinary: denies: urgency, dysuria, discharge Musculoskeletal: denies: back pain, joint swelling, arthralgia Skin: rash. denies: lesions Neurological: denies: headache, weakness, paresthesias Psychiatric: denies: anxiety, depression Hematological/Lymphatic: denies: easy bleeding, easy bruising ED Past Medical Hx - Past Medical History Hx CVA: Yes (2011 TIA) Hx Congestive Heart Failure: No Hx Diabetes: No Hx Deep Vein Thrombosis: Yes (x6) Hx Pulmonary Embolism: Yes (2005) Hx Psychiatric Treatment: Yes (bipolar disorder) Hx Asthma: No Hx COPD: No Additional medical history: Iron deficency anemia LUPUS. PE, endometriosis. hypothyroid - Surgical History Hx Cholecystectomy: Yes Additional Surgical History: endometrial ablation. D&C - Social History Smoking Status: Never Smoker Substance Use Type: None - Medications Home Medications: Home Medications Medication Instructions Recorded Confirmed Last Taken Type Apixaban [Eliquis] 2.5 mg PO BID 08/31/16 08/03/17 08/02/17 History clonazePAM [ Klonopin] 0.5 mg PO BID 08/31/16 08/03/17 08/02/17 History Levothyroxine [Synthroid] 100 mcg PO QAM 08/03/17 08/03/17 08/02/17 History Pravastatin Sodium [Pravastatin] 10 mg PO QHS 08/03/17 08/03/17 08/02/17 History Levothyroxine [Synthroid] 150 mcg PO QAM #30 tablet 11/29/17 Unknown Rx Famotidine [Pepcid] 40 mg PO DAILY #10 tablet 01/27/18 Unknown Rx diphenhydrAMINE [Benadryl CAP] 50 mg PO Q8HR PRN #20 capsule 01/27/18 Unknown Rx predniSONE [Deltasone] 60 mg PO DAILY 4 Days tablet 01/27/18 Unknown Rx ED Physical Exam - General Limitations: No Limitations General appearance: alert, in no apparent distress - Head Head exam: Present: atraumatic, normocephalic - Eye Eye exam: Present: normal appearance, PERRL, EOMI Pupils: Present: normal accommodation - ENT ENT exam: Present: normal exam, normal orophraynx, mucous membranes moist - Neck Neck exam: Present: normal inspection - Respiratory Respiratory exam: Present: normal lung sounds bilaterally. Absent: respiratory distress, wheezes, rales, rhonchi - Cardiovascular Cardiovascular Exam: Present: regular rate, normal rhythm. Absent: systolic murmur, diastolic murmur, rubs, gallop - GI/Abdominal GI/Abdominal exam: Present: soft, normal bowel sounds - Extremities Exam Extremities exam: Present: normal inspection, normal capillary refill - Back Exam Back exam: Present: normal inspection - Neurological Exam Neurological exam: Present: alert, oriented X3 - Psychiatric Psychiatric exam: Present: normal affect, normal mood - Skin Skin exam: Present: warm, dry, intact, normal color, rash, urticaria ED Course Vital Signs 01/27/18 11:04 Temperature 98.8 F Pulse Rate 89 Respiratory 18 Rate Blood Pressure 115/72 O2 Sat by Pulse 97 Oximetry - Reevaluation(s) Reevaluation #1: 01/27/18 15:55 Patient is felling much better. ED Medical Decision Making - Medical Decision Making Urticaria. Allergic Reaction. Critical care attestation.: If time is entered above; I have spent that time in minutes in the direct care of this critically ill patient, excluding procedure time. ED Disposition Clinical Impression: Urticaria Allergic reaction Qualifiers: Encounter type: initial encounter Qualified Code(s): T78.40XA - Allergy, unspecified, initial encounter Disposition: - TO HOME OR SELFCARE Is pt being admited?: No Does the pt Need Aspirin: No Condition: Stable Instructions: Urticaria (ED), Allergies (ED) Additional Instructions: Please follow up with Dr Alan on Tuesday morning. Return to the ED if your condition worsens. Prescriptions: diphenhydrAMINE [Benadryl CAP] 50 mg PO Q8HR PRN #20 capsule PRN Reason: Itching Famotidine [Pepcid] 40 mg PO DAILY #10 tablet predniSONE [Deltasone] 60 mg PO DAILY 4 Days tablet Referrals: LENORA HUNT MD [Primary Care Provider] - 3-5 Days RICCI ALAN MD [Staff Physician] - 3-5 Days Time of Disposition: 15:52
== END 2018-01-27 15:56 | disposition home or self-care (01) ==
LOC: ED 10:50
DX: L50.0 Allergic urticaria (principal); F31.9 Bipolar disorder, unspecified; Z86.73 Personal history of transient ischemic attack (TIA), and cerebral infarction without residual deficits; Z86.718 Personal history of other venous thrombosis and embolism; Z86.711 Personal history of pulmonary embolism; Z79.899 Other long term (current) drug therapy
CPT/HCPCS: 99282; J7512

== ENCOUNTER 2018-02-13 18:26 | Emergency (ER) | payer MEDICAID, OTHER ==
--- NOTE | 2018-02-13 18:33 | Emergency Department Report ---
HPI - General Time Seen by Provider: 02/13/18 18:28 - HPI HPI: 37-year-old -[place] female presents to the emergency department via EMS from home as a code stroke with complaint of some difficulty with speech, headache, dizziness and some left-sided weakness that started about one hour prior to arrival. The patient has a past medical history of hypertension, hypothyroidism, history of PE, lupus and a previous CVA/TIA without any residual deficits. The patient is awake and alert but has some difficulty expressing herself. She apparently called her boyfriend who noticed that she was talking funny and then called 911. ED Past Medical Hx - Past Medical History Hx CVA: Yes (2011 TIA) Hx Congestive Heart Failure: No Hx Diabetes: No Hx Deep Vein Thrombosis: Yes (x6) Hx Pulmonary Embolism: Yes (2004) Hx Psychiatric Treatment: Yes (bipolar disorder) Hx Asthma: No Hx COPD: No Additional medical history: Iron deficency anemia LUPUS. PE, endometriosis. hypothyroid - Surgical History Hx Cholecystectomy: Yes Additional Surgical History: endometrial ablation. D&C - Social History Smoking Status: Never Smoker Substance Use Type: None - Medications Home Medications: Home Medications Medication Instructions Recorded Confirmed Last Taken Type Apixaban [Eliquis] 2.5 mg PO BID 08/31/16 08/03/17 08/02/17 History clonazePAM [ Klonopin] 0.5 mg PO BID 08/31/16 08/03/17 08/02/17 History Levothyroxine [Synthroid] 100 mcg PO QAM 08/03/17 08/03/17 08/02/17 History Pravastatin Sodium [Pravastatin] 10 mg PO QHS 08/03/17 08/03/17 08/02/17 History Levothyroxine [Synthroid] 150 mcg PO QAM #30 tablet 11/29/17 Unknown Rx Famotidine [Pepcid] 40 mg PO DAILY #10 tablet 01/27/18 Unknown Rx diphenhydrAMINE [Benadryl CAP] 50 mg PO Q8HR PRN #20 capsule 01/27/18 Unknown Rx predniSONE [Deltasone] 60 mg PO DAILY 4 Days tablet 01/27/18 Unknown Rx ED Review of Systems ROS: Stated complaint: POSSIBLE STROKE Other details as noted in HPI Comment: All other systems reviewed and negative Constitutional: denies: chills, fever Eyes: denies: eye pain, vision change ENT: denies: ear pain, throat pain Respiratory: denies: cough, shortness of breath Cardiovascular: denies: chest pain, palpitations Gastrointestinal: denies: nausea, vomiting Genitourinary: denies: dysuria, discharge Musculoskeletal: denies: back pain, arthralgia Skin: denies: rash, lesions Neurological: headache, weakness ED Course - Consultations Consultation #1: 02/13/18 19:12 I spoke with the teleneurologist, Dr Loera, who is going to assess the patient by bus driver/monitor and call back with recommendations. 02/13/18 19:41 The telemedicine neurologist called back after doing an assessment of the patient and recommends a CT angiography of the head and neck. However the patient does not appear to be a TPA candidate as she is already anticoagulated on Eliquist. ED Medical Decision Making - Lab Data Result diagrams: 02/13/18 18:47 02/13/18 18:47 - EKG Data -: EKG Interpreted by Pa EKG shows normal: sinus rhythm, axis, intervals, QRS complexes, ST-T waves (flattening of T waves and a T-wave inversions in lead 3) Rate: normal - EKG Data When compared to previous EKG there are: previous EKG unavailable Interpretation: other (sinus rhythm, normal axis, normal intervals, flattening of the T waves to most leads with T wave inversion 23) - Radiology Data Radiology results: report reviewed EXAM: CT HEAD/BRAIN WO CON HISTORY: Stroke symptoms TECHNIQUE: 2.5 millimeter axial images from the skullbase to the vertex. Comparison: None FINDINGS: Visualization detail in the inferior frontal lobes, inferior temporal lobes and portions of the posterior fossa is limited by motion artifact. There is no definite evidence of an acute intracranial process and no evidence of intracranial hemorrhage or significant mass effect. The ventricles are normal size. The visualized portions of the orbits, paranasal and mastoid sinuses are unremarkable. The bony structures are unremarkable. IMPRESSION: 1. Study somewhat degraded by motion artifact. 2. No definite evidence of an acute intracranial process and no evidence of intracranial hemorrhage or mass effect. If there is a clinical suspicion of an acute intracranial process, MRI brain would be helpful for further evaluation. Transcribed By: ED Dictated By: LOPEZ WEBB MD Electronically Authenticated By: LOPEZ WEBB MD Signed Date/Time: 02/13/181906 EXAM: CT ANGIO NECK HISTORY: CVA TECHNIQUE: Following IV administration of 100 cc of Omnipaque 350 axial helical imaging was performed through the neck with maximum intensity projection images obtained. Comparison: CT angiogram brain also performed today FINDINGS: There is normal enhancement of the cervical carotid and vertebral arteries without evidence of occlusion, stenosis, dissection or aneurysm. The vertebral arteries are codominant. The cervical soft tissues are unremarkable. The bony structures are unremarkable. IMPRESSION: 1. No evidence of occlusion, stenosis, dissection or aneurysm of the cervical carotid and vertebral arteries. EXAM: CT ANGIO HEAD HISTORY: CVA TECHNIQUE: Following IV administration of 100 cc of Omnipaque 350 axial helical imaging was performed through the brain with maximum intensity projection images obtained. Comparison: Head CT also performed today FINDINGS: There is normal enhancement of the major intracranial arteries without evidence of occlusion, hemodynamically significant stenosis or aneurysm. There is normal enhancement of the major intracranial venous structures. IMPRESSION: 1. No evidence of occlusion, hemodynamically significant stenosis or aneurysm of the major intracranial arteries. Transcribed By: ED Dictated By: LOPEZ WEBB MD Electronically Authenticated By: LOPEZ WEBB MD Signed Date/Time: 02/13/182100 - Medical Decision Making Patient came in as a code stroke with some aphasia, dysarthria and some mild left-sided weakness. This gave her a 3 on the NIH stroke scale. CT head without contrast did not show any bleed, shift, mass, ischemia or any other acute process. Neurology was contacted and evaluated the patient via bus driver/monitor. The patient was not a TPA candidate as she was already on anticoagulation but the recommendation was made to get a CT angiography of the head and neck. This was done and it did not show any signs of any occlusion, thrombosis, aneurysm or any other acute process. Patient's labs were mostly unremarkable. Vital signs stable throughout her ED course. The plan was going to be to admit the patient to the hospital for MRI of the brain and further stroke workup. However when I went to reevaluate the patient and give her the angiography results, the patient had eloped from the emergency department. We were in contact with the patient after she left and the patient says that she has no interest in being admitted to the hospital and appears to understand the risks of leaving without any further evaluation. We tried to convince her to return but so far she has remained at home. - Differential Diagnosis CVA, TIA, conversion disorder, dysrhythmia, hypoglycemia Critical Care Time: Yes Critical care time in (mins) excluding proc time.: 35 Critical care attestation.: If time is entered above; I have spent that time in minutes in the direct care of this critically ill patient, excluding procedure time. Critical care time spent on this patient and doing her initial evaluation, multiple re-evaluations, ordering and interpretation of labs and imaging, discussion with the neurologist and the patient herself. Critical Care Time: 35 minutes ED Disposition Clinical Impression: CVA (cerebral vascular accident) Qualifiers: CVA mechanism: unspecified Qualified Code(s): I63.9 - Cerebral infarction, unspecified Disposition: ELOPED Is pt being admited?: No Condition: Serious Referrals: PRIMARY CARE, [Primary Care Provider] - 3-5 Days Time of Disposition: 22:07 - Assessment Assessment Interval: Baseline - Level of Consciousness 1a. Level of Consciousness: alert/keenly responsive - LOC Questions 1b. LOC Questions: answers both correctly - LOC Command 1c. LOC Commands: performs tasks correctly - Best Gaze 2. Best Gaze: normal - Visual 3. Visual: no visual loss - Facial Palsy 4. Facial Palsy: normal symmetrical movement - Motor Arm 5b. Motor Arm Right: no drift 5a. Motor Arm Left: no drift - Motor Leg 6b. Motor Leg Right: no drift 6a. Motor Leg Left: drift - Limb Ataxia 7. Limb Ataxia: absent - Sensory 8. Sensory: normal - Best Language 9. Best Language: mild/moderate aphasia - Dysarthria 10. Dysarthria: mild/moderate dysarthria - Extinction and Inattention 11. Extinction/Inattention: no abnormality - Scoring Total Score: 3 Stroke Severity: Minor Stroke
--- NOTE | 2018-02-13 19:07 | Cat Scan Report ---
FINAL REPORT EXAM: CT HEAD/BRAIN WO CON HISTORY: Stroke symptoms TECHNIQUE: 2.5 millimeter axial images from the skullbase to the vertex. Comparison: None FINDINGS: Visualization detail in the inferior frontal lobes, inferior temporal lobes and portions of the poste rior fossa is limited by motion artifact. There is no definite evidence of an acute intracranial process and no evidence of intracranial hemorr rhonda or significant mass effect. The ventricles are normal size. The visualized portions of the orbits, paranasal and mastoid sinuses are unremarkable. The bony structures are unremarkable. IMPRESSION: 1. Study somewhat degraded by motion artifact. 2. No definite evidence of an acute intracranial process and no evidence of intracranial hemorrhage o r mass effect. If there is a clinical suspicion of an acute intracranial process, MRI brain would be helpful for fur ther evaluation.
[2018-02-13 19:09] LABS: Basophils # (Auto) 0.1 K/mm3 (0.0-0.1); Basophils % (Auto) 0.8 % (0.0-1.8); Eosinophils # (Auto) 0.1 K/mm3 (0.0-0.4); Eosinophils % (Auto) 0.8 % (0.0-4.3); Hematocrit 36.8 % (30.3-42.9); Hemoglobin 11.7 gm/dl (10.1-14.3); Lymphocytes # (Auto) 1.7 K/mm3 (1.2-5.4); Lymphocytes % (Auto) 22.8 % (13.4-35.0); Mean Corpuscular HGB Conc 32 % (30-34); Mean Corpuscular Volume 75 fl (79-97); Monocytes # (Auto) 0.5 K/mm3 (0.0-0.8); Monocytes % (Auto) 6.5 % (0.0-7.3); Platelet Count 359 K/mm3 (140-440); Red Cell Distribution Width 16.7 % (13.2-15.2)
[2018-02-13 19:21] LABS: INR 0.99 (0.87-1.13)
[2018-02-13 19:22] LABS: Thrombin Time 16.3 Sec. (15.1-19.6)
[2018-02-13 19:27] LABS: Creatine Kinase MB 3.8 ng/mL (0.0-4.0)
[2018-02-13 19:29] LABS: Alanine Aminotransferase 19 units/L (7-56); Albumin 4.5 g/dL (3.9-5); BUN/Creatinine Ratio 9; Blood Urea Nitrogen 7 mg/dL (7-17); Calcium 9.5 mg/dL (8.4-10.2); Hemolysis Index 13
[2018-02-13 20:10] VITALS: BP 129/84
--- NOTE | 2018-02-13 21:01 | Cat Scan Report ---
FINAL REPORT EXAM: CT ANGIO HEAD HISTORY: CVA TECHNIQUE: Following IV administration of 100 cc of Omnipaque 350 axial helical imaging was performe d through the brain with maximum intensity projection images obtained. Comparison: Head CT also performed today FINDINGS: There is normal enhancement of the major intracranial arteries without evidence of occlusion, hemodyn amically significant stenosis or aneurysm. There is normal enhancement of the major intracranial venous structures. IMPRESSION: 1. No evidence of occlusion, hemodynamically significant stenosis or aneurysm of the major intracrani al arteries.
--- NOTE | 2018-02-13 21:03 | Cat Scan Report ---
FINAL REPORT EXAM: CT ANGIO NECK HISTORY: CVA TECHNIQUE: Following IV administration of 100 cc of Omnipaque 350 axial helical imaging was performe d through the neck with maximum intensity projection images obtained. Comparison: CT angiogram brain also performed today FINDINGS: There is normal enhancement of the cervical carotid and vertebral arteries without evidence of occlus ion, stenosis, dissection or aneurysm. The vertebral arteries are codominant. The cervical soft tissues are unremarkable. The bony structures are unremarkable. IMPRESSION: 1. No evidence of occlusion, stenosis, dissection or aneurysm of the cervical carotid and vertebral a rteries.
--- NOTE | 2018-02-14 01:56 | Consultation ---
The patient presented with EMS. Predominant complaint is dizziness and subjective weakness. Review of her CT shows no remarkable abnormalities, salazar white matter normal, ventricular cisterns normal in size and shape. No focal abnormalities are present. Neurologic examination is grossly unremarkable. ED physician will further evaluate the patient, communicated these results to the attending nurse at the time of presentation from the ED registration. I do not see any indication of any surgical lesion, acute changes on the CT. JOB# [id number] TRACY/NTS
== END 2018-02-13 21:30 | disposition left against medical advice (07) ==
LOC: ED 18:26
DX: I63.9 Cerebral infarction, unspecified (principal); F31.9 Bipolar disorder, unspecified; Z86.73 Personal history of transient ischemic attack (TIA), and cerebral infarction without residual deficits; Z86.718 Personal history of other venous thrombosis and embolism; Z86.711 Personal history of pulmonary embolism; Z86.2 Personal history of diseases of the blood and blood-forming organs and certain disorders involving the immune mechanism; Z90.49 Acquired absence of other specified parts of digestive tract; Z79.899 Other long term (current) drug therapy; Z88.8 Allergy status to other drugs, medicaments and biological substances
CPT/HCPCS: 36415; 70450; 70496; 70498; 80053; 82550; 82553; 82962; 84443; 84484; 85025; 85610; 85670; 85730; 86850; 86900; 86901; 93005; 93010; 99291; G0480; Q9967; 80320

== ENCOUNTER 2018-03-30 02:01 | Emergency (ER) | payer OTHER ==
[2018-03-30] MEDS ORDERED: ASPIRIN PO ONE (02:28)
[2018-03-30 02:43] LABS: Basophils % (Auto) 0.7 % (0.0-1.8); Eosinophils # (Auto) 0.1 K/mm3 (0.0-0.4); Hematocrit 33.9 % (30.3-42.9); Hemoglobin 10.9 gm/dl (10.1-14.3); Lymphocytes % (Auto) 32.8 % (13.4-35.0); Mean Corpuscular HGB Conc 32 % (30-34); Mean Corpuscular Volume 75 fl (79-97); Monocytes # (Auto) 0.4 K/mm3 (0.0-0.8); Monocytes % (Auto) 7.1 % (0.0-7.3); Platelet Count 358 K/mm3 (140-440); Red Blood Count 4.52 M/mm3 (3.65-5.03); Red Cell Distribution Width 16.6 % (13.2-15.2)
[2018-03-30 02:54] VITALS: BP 122/79
[2018-03-30 03:03] LABS: BUN/Creatinine Ratio 9; Blood Urea Nitrogen 6 mg/dL (7-17); Calcium 8.8 mg/dL (8.4-10.2); Hemolysis Index 4
--- NOTE | 2018-03-30 03:09 | Emergency Department Report ---
ED General Adult HPI - General Chief complaint: Chest Pain Stated complaint: CHEST PAIN INCREASED HEART RATE Time Seen by Provider: 03/30/18 03:00 Source: patient, RN notes reviewed, old records reviewed Mode of arrival: Ambulatory Limitations: No Limitations - History of Present Illness Initial comments: Primary care Dr.: Dr. Calvin Past medical history: Hypothyroidism, obesity, TIA, pulmonary embolus, lupus, endometriosis, currently on systemic anticoagulation; eliquis This is a 37-year-old female who presents to the emergency room with a sensation of resolved rapid heartbeat, and feeling of unease. The patient endorses compliance with her medications. She denies headache, neck pain, chest pain, abdominal pain or shortness of breath. The patient reports that she may have a history of anxiety, and felt like her anxiety was acting up. She denies recent road trips, surgeries, oral contraceptive use, hospitalizations. Contrary to what is documented in the triage note, the patient makes no complaint of chest pain or back pain or breast pain. -: Sudden Severity scale (0 -10): 4 Consistency: now resolved Improves with: none Worsens with: none - Related Data Home Medications Medication Instructions Recorded Confirmed Last Taken Apixaban [Eliquis] 2.5 mg PO BID 08/31/16 08/03/17 08/02/17 clonazePAM [ Klonopin] 0.5 mg PO BID 08/31/16 08/03/17 08/02/17 Levothyroxine [Synthroid] 100 mcg PO QAM 08/03/17 08/03/17 08/02/17 Pravastatin Sodium [Pravastatin] 10 mg PO QHS 08/03/17 08/03/17 08/02/17 Previous Rx's Medication Instructions Recorded Last Taken Type Levothyroxine [Synthroid] 150 mcg PO QAM #30 tablet 11/29/17 Unknown Rx Famotidine [Pepcid] 40 mg PO DAILY #10 tablet 01/27/18 Unknown Rx diphenhydrAMINE [Benadryl CAP] 50 mg PO Q8HR PRN #20 capsule 01/27/18 Unknown Rx predniSONE [Deltasone] 60 mg PO DAILY 4 Days tablet 01/27/18 Unknown Rx Allergies Allergy/AdvReac Type Severity Reaction Status Date / Time iron dextran complex Allergy Severe Swelling Verified 02/13/18 18:48 carbamazepine [From Tegretol] Allergy Angioedema Verified 02/13/18 18:48 ED Review of Systems ROS: Stated complaint: CHEST PAIN INCREASED HEART RATE Other details as noted in HPI Constitutional: malaise. denies: fever Eyes: denies: vision change ENT: denies: epistaxis Respiratory: denies: cough Cardiovascular: palpitations. denies: chest pain Gastrointestinal: denies: abdominal pain Genitourinary: denies: dysuria Musculoskeletal: denies: back pain, arthralgia, myalgia Skin: denies: lesions Neurological: weakness Psychiatric: anxiety ED Past Medical Hx - Past Medical History Previous Medical History?: Yes Hx CVA: Yes (2011 TIA) Hx Congestive Heart Failure: No Hx Diabetes: No Hx Deep Vein Thrombosis: Yes (x6) Hx Pulmonary Embolism: Yes (2004) Hx Psychiatric Treatment: Yes (bipolar disorder) Hx Asthma: No Hx COPD: No Additional medical history: Iron deficency anemia LUPUS. PE, endometriosis. hypothyroid - Surgical History Past Surgical History?: Yes Hx Cholecystectomy: Yes Additional Surgical History: endometrial ablation. D&C - Social History Smoking Status: Never Smoker Substance Use Type: None - Medications Home Medications: Home Medications Medication Instructions Recorded Confirmed Last Taken Type Apixaban [Eliquis] 2.5 mg PO BID 08/31/16 08/03/17 08/02/17 History clonazePAM [ Klonopin] 0.5 mg PO BID 08/31/16 08/03/17 08/02/17 History Levothyroxine [Synthroid] 100 mcg PO QAM 08/03/17 08/03/17 08/02/17 History Pravastatin Sodium [Pravastatin] 10 mg PO QHS 08/03/17 08/03/17 08/02/17 History Levothyroxine [Synthroid] 150 mcg PO QAM #30 tablet 11/29/17 Unknown Rx Famotidine [Pepcid] 40 mg PO DAILY #10 tablet 01/27/18 Unknown Rx diphenhydrAMINE [Benadryl CAP] 50 mg PO Q8HR PRN #20 capsule 01/27/18 Unknown Rx predniSONE [Deltasone] 60 mg PO DAILY 4 Days tablet 01/27/18 Unknown Rx ED Physical Exam - General Limitations: No Limitations General appearance: alert, in no apparent distress - Head Head exam: Present: atraumatic, normocephalic - Eye Eye exam: Present: normal appearance, EOMI. Absent: nystagmus - ENT ENT exam: Present: normal exam, normal orophraynx, mucous membranes moist, normal external ear exam - Neck Neck exam: Present: normal inspection, full ROM. Absent: tenderness, meningismus - Respiratory Respiratory exam: Present: normal lung sounds bilaterally. Absent: respiratory distress - Cardiovascular Cardiovascular Exam: Present: regular rate, normal rhythm, normal heart sounds. Absent: bradycardia, tachycardia, irregular rhythm, systolic murmur, diastolic murmur, rubs, gallop - GI/Abdominal GI/Abdominal exam: Present: soft. Absent: distended, tenderness, guarding, rebound, rigid, pulsatile mass - Extremities Exam Extremities exam: Present: normal inspection, full ROM, other (there is no palp able cord. There is a negative Homans sign.). Absent: normal capillary refill, pedal edema, joint swelling, calf tenderness - Back Exam Back exam: Present: normal inspection, full ROM. Absent: tenderness, CVA tenderness (R), paraspinal tenderness, vertebral tenderness - Neurological Exam Neurological exam: Present: alert, oriented X3, CN II-XII intact, normal gait, other (Extraocular movements intact. Tongue midline. No facial droop. Facial sensation intact to light touch in the V1, V2, V3 distribution bilaterally. 5 and 5 strength in 4 extremities.. Sensation is intact to light touch in 4 extremities.). Absent: motor sensory deficit - Psychiatric Psychiatric exam: Present: anxious - Skin Skin exam: Present: warm, dry, intact, normal color. Absent: rash ED Course Vital Signs 03/30/18 03/30/18 03/30/18 02:24 02:53 03:37 Temperature 98 F Pulse Rate 99 H 81 86 Respiratory 18 19 Rate Blood Pressure 125/82 Blood Pressure 122/79 [Left] O2 Sat by Pulse 99 98 Oximetry - Reevaluation(s) Reevaluation #1: 03/30/18 04:34 The patient has returned to the emergency room after reportedly going to jump start her car. Her laboratory studies, physical exam, EKG, vital signs unremarkable, unchanged from prior, and appear to be at baseline. The patient does not appear to have an emergent medical condition at this time, and she is suitable to follow up with an outpatient primary care doctor, and/or cardiol ogist. ED Medical Decision Making - Lab Data Result diagrams: 03/30/18 02:31 03/30/18 02:31 Vital Signs 03/30/18 03/30/18 03/30/18 02:24 02:53 03:37 Temperature 98 F Pulse Rate 99 H 81 86 Respiratory 18 19 Rate Blood Pressure 125/82 Blood Pressure 122/79 [Left] O2 Sat by Pulse 99 98 Oximetry Labs 03/30/18 03/30/18 03/30/18 02:31 02:31 02:31 WBC 6.0 RBC 4.52 Hgb 10.9 Hct 33.9 MCV 75 L MCH 24 L MCHC 32 RDW 16.6 H Plt Count 358 Lymph % (Auto) 32.8 Rabun % (Auto) 7.1 Eos % (Auto) 2.0 Baso % (Auto) 0.7 Lymph # 2.0 Rabun # 0.4 Eos # 0.1 Baso # 0.0 Seg Neutrophils % 57.4 Seg Neutrophils # 3.4 Sodium 139 Potassium 3.6 Chloride 103.2 Carbon Dioxide 23 Anion Gap 16 BUN 6 L Creatinine 0.7 Estimated GFR > 60 BUN/Creatinine Ratio 9 Glucose 109 H Calcium 8.8 Magnesium 1.80 Total Creatine Kinase 552 H Troponin T < 0.010 TSH Free T4 03/30/18 03/30/18 03:17 03:17 WBC RBC Hgb Hct MCV MCH MCHC RDW Plt Count Lymph % (Auto) Rabun % (Auto) Eos % (Auto) Baso % (Auto) Lymph # Rabun # Eos # Baso # Seg Neutrophils % Seg Neutrophils # Sodium Potassium Chloride Carbon Dioxide Anion Gap BUN Creatinine Estimated GFR BUN/Creatinine Ratio Glucose Calcium Magnesium Total Creatine Kinase Troponin T TSH 1.730 Free T4 1.26 - EKG Data -: EKG Interpreted by Ms EKG shows normal: sinus rhythm Rate: normal - EKG Data When compared to previous EKG there are: no significant change Interpretation: no acute changes, unchanged when compared t 03/30/18 04:10 Sinus, 86 bpm, normal axis, QTC 445 ms, nonspecific T-wave abnormality, abnormal EKG, not consistent with ST elevation myocardial infarction, appears unchanged from prior EKG from 02/13/2018. - Medical Decision Making Differential diagnosis, including but not limited to: Anxiety, electrolyte derangement, thyroid derangement, general medical evaluation Assessment and plan: 37-year-old female with complaint of painless palpitations, and weakness, now resolved. Clinically doubt pulmonary embolus as the patient is not tachycardic, not hypoxic, and endorses compliance with her medications. Her physical examination is unremarkable, screening laboratory studies unremarkable; troponin was sent prior to my evaluation. However, based off of the history and physical, I do not have a high suspicion for acute coronary syndrome, find the patient to be low risk by well's criteria and the JENNY score, heart score. The patient eloped from the emergency room before the completion of her evaluation. Critical care attestation.: If time is entered above; I have spent that time in minutes in the direct care of this critically ill patient, excluding procedure time. ED Disposition Clinical Impression: History of palpitations Disposition: - TO HOME OR SELFCARE Is pt being admited?: No Does the pt Need Aspirin: No Condition: Good Additional Instructions: Continue outpatient medications. Follow-up with the primary care doctor or dog catcher in the next 7-14 days. Return to the emergency room right away with new, worsening or different symptoms. Referrals: ANTHONY VANCE MD [Primary Care Provider] - 3-5 Days RICCI CALVIN MD [Staff Physician] - 3-5 Days [facility] [Provider Group] - 3-5 Days
== END 2018-03-30 05:00 | disposition home or self-care (01) ==
LOC: ED 02:01
DX: R00.2 Palpitations (principal); F31.9 Bipolar disorder, unspecified; E03.9 Hypothyroidism, unspecified; D50.9 Iron deficiency anemia, unspecified; Z86.73 Personal history of transient ischemic attack (TIA), and cerebral infarction without residual deficits; Z86.718 Personal history of other venous thrombosis and embolism; Z86.711 Personal history of pulmonary embolism; Z90.49 Acquired absence of other specified parts of digestive tract; Z88.8 Allergy status to other drugs, medicaments and biological substances
CPT/HCPCS: 36415; 80048; 82550; 83735; 84439; 84443; 84484; 85025; 93005; 93010

== ENCOUNTER 2018-04-07 00:59 | Emergency (ER) | payer OTHER ==
[2018-04-07 01:08] VITALS: BP 123/74
== END 2018-04-07 01:19 | disposition left against medical advice (07) ==
LOC: ED 00:59
DX: R53.83 Other fatigue (principal); Z53.21 Procedure and treatment not carried out due to patient leaving prior to being seen by health care provider

== ENCOUNTER 2018-05-30 11:28 | Emergency (ER) | payer OTHER, MEDICAID ==
--- NOTE | 2018-05-30 12:31 | Emergency Department Report ---
Chief Complaint: Shoulder Injury Stated Complaint: CHEST PAIN Time Seen by Provider: 05/30/18 12:28 - HPI History of Present Illness: ant chest pain worse w movement no sob no heart racing on eloquis 18 m hx htn hpld dvt pe endometrial ablation pernic. anemia mse completed MSE screening note: Focused history and physical exam performed. Due to findings the following was ordered: ED Disposition for MSE Condition: Stable
--- NOTE | 2018-05-30 13:14 | XRay Report ---
ROUTINE CHEST, TWO VIEWS: HISTORY: chest pain. The trachea, heart, mediastinal contour, lung fuentes and bony thorax are unremarkable. No significant change since 08/03/17. IMPRESSION: Unremarkable chest x-ray.
[2018-05-30 13:43] LABS: Hematocrit 33.6 % (30.3-42.9); Hemoglobin 10.7 gm/dl (10.1-14.3); Mean Corpuscular HGB Conc 32 % (30-34); Mean Corpuscular Volume 76 fl (79-97); Platelet Count 339 K/mm3 (140-440); Red Blood Count 4.41 M/mm3 (3.65-5.03)
[2018-05-30 14:09] LABS: Alanine Aminotransferase 19 units/L (7-56); Albumin 3.8 g/dL (3.9-5); BUN/Creatinine Ratio 10; Blood Urea Nitrogen 7 mg/dL (7-17); Calcium 8.9 mg/dL (8.4-10.2); Hemolysis Index 26
--- NOTE | 2018-05-30 16:11 | Emergency Department Report ---
ED Chest Pain HPI - General Chief Complaint: Shoulder Injury Stated Complaint: CHEST PAIN Time Seen by Provider: 05/30/18 12:28 Source: patient Mode of arrival: Ambulatory Limitations: No Limitations - History of Present Illness Initial Comments: This is a 37-year-old -[place] female who presents with chest pain that is worse with movement. Patient reports pain as a sharp tightness sensation for the past 4-5 days. Past medical history TIA, DVT, bipolar, anxiety, lupus, and iron deficiency anemia. Patient states she is currently taking eliquis. Patient states she is worried of a pulled muscle. She denies heavy lifting, swelling, bruising, shortness of breath, palpitations, dizziness, or nausea or vomiting. MD Complaint: chest pain Onset/Timin -: days(s) Onset: other (with movement) Pain Location: left chest Pain Radiation: none Severity: moderate Severity scale (0 -10): 6 Quality: tightness, other (pulling) Consistency: intermittent Improves With: nothing Worsens With: palpation, movement Other Symptoms: denies: cough, fever, syncope, rash, acid taste in mouth, leg swelling, palpitations, burping Treatments Prior to Arrival: none Aspirin use within the Past 7 Days: (0) No - Related Data On Oral Contraceptives: No Home Medications Medication Instructions Recorded Confirmed Last Taken Apixaban [Eliquis] 2.5 mg PO BID 08/31/16 08/03/17 08/02/17 clonazePAM [ Klonopin] 0.5 mg PO BID 08/31/16 08/03/17 08/02/17 Levothyroxine [Synthroid] 100 mcg PO QAM 08/03/17 08/03/17 08/02/17 Pravastatin Sodium [Pravastatin] 10 mg PO QHS 08/03/17 08/03/17 08/02/17 Previous Rx's Medication Instructions Recorded Last Taken Type Levothyroxine [Synthroid] 150 mcg PO QAM #30 tablet 11/29/17 Unknown Rx Famotidine [Pepcid] 40 mg PO DAILY #10 tablet 01/27/18 Unknown Rx diphenhydrAMINE [Benadryl CAP] 50 mg PO Q8HR PRN #20 capsule 01/27/18 Unknown Rx predniSONE [Deltasone] 60 mg PO DAILY 4 Days tablet 01/27/18 Unknown Rx Ibuprofen [Motrin 800 MG tab] 800 mg PO Q8HR PRN #20 tablet 05/30/18 Unknown Rx Allergies Allergy/AdvReac Type Severity Reaction Status Date / Time iron dextran complex Allergy Severe Swelling Verified 02/13/18 18:48 carbamazepine [From Tegretol] Allergy Angioedema Verified 02/13/18 18:48 Heart Score - HEART Score History: Moderately suspicious EKG: Normal Age: < 45 Risk factors: 1-2 risk factors Troponin: < normal limit HEART Score: 2 ED Review of Systems ROS: Stated complaint: CHEST PAIN Other details as noted in HPI Constitutional: denies: chills, fever Respiratory: denies: cough, shortness of breath, wheezing Cardiovascular: chest pain. denies: palpitations Gastrointestinal: denies: abdominal pain, nausea, diarrhea Skin: denies: rash, lesions Neurological: denies: headache, weakness, paresthesias Psychiatric: denies: anxiety, depression ED Past Medical Hx - Past Medical History Previous Medical History?: Yes Hx CVA: Yes (2011 TIA) Hx Congestive Heart Failure: No Hx Diabetes: No Hx Deep Vein Thrombosis: Yes (x6) Hx Pulmonary Embolism: Yes (2004) Hx Psychiatric Treatment: Yes (bipolar disorder) Hx Asthma: No Hx COPD: No Additional medical history: Iron deficency anemia LUPUS. PE, endometriosis. hypothyroid - Surgical History Hx Cholecystectomy: Yes Additional Surgical History: endometrial ablation. D&C - Social History Smoking Status: Never Smoker Substance Use Type: None - Medications Home Medications: Home Medications Medication Instructions Recorded Confirmed Last Taken Type Apixaban [Eliquis] 2.5 mg PO BID 08/31/16 08/03/17 08/02/17 History clonazePAM [ Klonopin] 0.5 mg PO BID 08/31/16 08/03/17 08/02/17 History Levothyroxine [Synthroid] 100 mcg PO QAM 08/03/17 08/03/17 08/02/17 History Pravastatin Sodium [Pravastatin] 10 mg PO QHS 08/03/17 08/03/17 08/02/17 History Levothyroxine [Synthroid] 150 mcg PO QAM #30 tablet 11/29/17 Unknown Rx Famotidine [Pepcid] 40 mg PO DAILY #10 tablet 01/27/18 Unknown Rx diphenhydrAMINE [Benadryl CAP] 50 mg PO Q8HR PRN #20 capsule 01/27/18 Unknown Rx predniSONE [Deltasone] 60 mg PO DAILY 4 Days tablet 01/27/18 Unknown Rx Ibuprofen [Motrin 800 MG tab] 800 mg PO Q8HR PRN #20 tablet 05/30/18 Unknown Rx ED Physical Exam - General Limitations: No Limitations General appearance: alert, in no apparent distress, obese - Respiratory Respiratory exam: Present: normal lung sounds bilaterally, chest wall tenderness (tenderness along the costochondral joint on left). Absent: respiratory distres s - Cardiovascular Cardiovascular Exam: Present: regular rate, normal rhythm. Absent: systolic murmur, diastolic murmur, rubs, gallop - GI/Abdominal GI/Abdominal exam: Present: soft, normal bowel sounds. Absent: distended, tenderness, guarding, rebound, rigid, organomegaly, mass - Neurological Exam Neurological exam: Present: alert, oriented X3 - Psychiatric Psychiatric exam: Present: normal affect, normal mood - Skin Skin exam: Present: warm, dry, intact, normal color. Absent: rash ED Course Vital Signs 05/30/18 05/30/18 12:27 16:42 Temperature 98.1 F 98.1 F Pulse Rate 86 83 Respiratory 16 16 Rate Blood Pressure 116/52 112/88 O2 Sat by Pulse 99 98 Oximetry JENNY score - Jenny Score Age > 65: (0) No Aspirin use within the Past 7 Days: (0) No 3 or more CAD Risk Factors: (0) No 2 or more Angina events in past 24 hrs: (0) No Known CAD with more than 50% Stenosis: (0) No Elevated Cardiac Markers: (0) No ST Deviation Greater than 0.5mm: (0) No JENNY Score: 0 ED Medical Decision Making - Lab Data Result diagrams: 05/30/18 13:22 05/30/18 13:22 Lab Results 05/30/18 05/30/18 05/30/18 Range/Units 13:22 13:22 16:05 WBC 6.7 (4.5-11.0) K/mm3 RBC 4.41 (3.65-5.03) M/mm3 Hgb 10.7 (10.1-14.3) gm/dl Hct 33.6 (30.3-42.9) % MCV 76 L (79-97) fl MCH 24 L (28-32) pg MCHC 32 (30-34) % RDW 17.0 H (13.2-15.2) % Plt Count 339 (140-440) K/mm3 Sodium 142 (137-145) mmol/L Potassium 4.2 (3.6-5.0) mmol/L Chloride 105.2 (98-107) mmol/L Carbon Dioxide 26 (22-30) mmol/L Anion Gap 15 mmol/L BUN 7 (7-17) mg/dL Creatinine 0.7 (0.7-1.2) mg/dL Estimated GFR > 60 ml/min BUN/Creatinine Ratio 10 % Glucose 109 H (65-100) mg/dL Calcium 8.9 (8.4-10.2) mg/dL Total Bilirubin 0.40 (0.1-1.2) mg/dL AST 25 (5-40) units/L ALT 19 (7-56) units/L Alkaline Phosphatase 69 (35-129) units/L Troponin T < 0.010 (0.00-0.029) ng/mL Total Protein 7.1 (6.3-8.2) g/dL Albumin 3.8 L (3.9-5) g/dL Albumin/Globulin Ratio 1.2 % - EKG Data -: No EKG Interpreted by Me (EKG Interpreted by Attending) EKG shows normal: sinus rhythm Rate: normal - Radiology Data Radiology results: report reviewed ROUTINE CHEST, TWO VIEWS: HISTORY: chest pain. The trachea, heart, mediastinal contour, lung fuentes and bony thorax are unremarkable. No significant change since 08/03/17. IMPRESSION: Unremarkable chest x-ray. - Medical Decision Making 37 y.o. female that presents with chest pain on left side of chest that is non- radiating for 4 days. Denies drug use, asthma, SOB, palpations, fever, or dyspnea. PMH of TIA, DVT, bipolar, anxiety, lupus, and iron deficiency anemia. Patient examined by me and in no acute distress. Vitals stable. Obtained CMP, CBC, troponin, and chest xray. All labs and CXR normal. Physical assessment findings of tenderness along costocondral joint on left. Start ibuprofen. Referral to cardiology if symptoms increase. Encouraged to follow up with primary care provider next week. Discharged home stable. Return to work tomorrow. Critical care attestation.: If time is entered above; I have spent that time in minutes in the direct care of this critically ill patient, excluding procedure time. ED Disposition Clinical Impression: Acute costochondritis, Left-sided chest wall pain Disposition: TO HOME OR SELFCARE Is pt being admited?: No Does the pt Need Aspirin: No Condition: Stable Instructions: Chest Pain (ED), Costochondritis (ED) Additional Instructions: Take ibuprofen as needed for pain control. Follow up with primary care provider in 24-72 hours. Return to ER if chest pain unresolved, shortness of breath, or difficulty breathing. Prescriptions: Ibuprofen [Motrin 800 MG tab] 800 mg PO Q8HR PRN #20 tablet PRN Reason: Pain , Severe (7-10) Referrals: [facility] [Provider Group] - 3-5 Days DARIA ROSA MD [Staff Physician] - 3-5 Days Forms: Work/School Release Form(ED) Time of Disposition: 17:49
[2018-05-30 16:48] VITALS: BP 112/88
== END 2018-05-30 18:05 | disposition home or self-care (01) ==
LOC: ED 11:28
DX: M94.0 Chondrocostal junction syndrome [Tietze] (principal); M32.9 Systemic lupus erythematosus, unspecified; D50.9 Iron deficiency anemia, unspecified; E03.9 Hypothyroidism, unspecified; Z86.718 Personal history of other venous thrombosis and embolism; Z88.8 Allergy status to other drugs, medicaments and biological substances; Z86.73 Personal history of transient ischemic attack (TIA), and cerebral infarction without residual deficits; Z90.49 Acquired absence of other specified parts of digestive tract; Z98.890 Other specified postprocedural states
CPT/HCPCS: 36415; 71046; 80053; 84484; 85027; 93005; 93010; 99284

== ENCOUNTER 2018-06-08 11:09 | Emergency (ER) | payer MEDICAID ==
[2018-06-08 11:28] VITALS: BP 128/86
--- NOTE | 2018-06-08 11:28 | Emergency Department Report ---
Blank Doc - Documentation Documentation: 37 y/o female with hx/o DVT comes back in for rt leg swelling and pain. Was s een last week for CP and was told if she had any swelling in her legs Hx/o to return to ER for further evaluation. No menses hx/o
[2018-06-08 12:11] LABS: Basophils # (Auto) 0.1 K/mm3 (0.0-0.1); Basophils % (Auto) 0.9 % (0.0-1.8); Eosinophils # (Auto) 0.4 K/mm3 (0.0-0.4); Eosinophils % (Auto) 5.5 % (0.0-4.3); Hemoglobin 10.5 gm/dl (10.1-14.3); Lymphocytes # (Auto) 1.5 K/mm3 (1.2-5.4); Lymphocytes % (Auto) 23.5 % (13.4-35.0); Mean Corpuscular HGB Conc 32 % (30-34); Mean Corpuscular Volume 76 fl (79-97); Monocytes # (Auto) 0.5 K/mm3 (0.0-0.8); Platelet Count 364 K/mm3 (140-440); Red Blood Count 4.35 M/mm3 (3.65-5.03); Red Cell Distribution Width 17.2 % (13.2-15.2)
[2018-06-08 12:24] LABS: Alanine Aminotransferase 25 units/L (7-56); Albumin 3.9 g/dL (3.9-5); BUN/Creatinine Ratio 7; Blood Urea Nitrogen 5 mg/dL (7-17); Calcium 8.7 mg/dL (8.4-10.2); Hemolysis Index 8
--- NOTE | 2018-06-08 14:36 | Cat Scan Report ---
CTA chest: History: Chest pain. Findings: There is no evidence of pulmonary embolism. No evidence of aortic aneurysm. No endobronchial or mediastinal mass or adenopathy. No pleural pericardial effusion. Normal lung parenchyma. No consolidation or discrete nodularity. Incidentally noted moderate size hiatal hernia. Impression: No evidence of pulmonary embolism. No acute lung changes. Incidentally noted moderate sized hiatal hernia.
--- NOTE | 2018-06-08 15:04 | Emergency Department Report ---
ED General Adult HPI - General Chief complaint: Extremity Injury, Lower Stated complaint: RT LEG/ANKLE SWELLING Time Seen by Provider: 06/08/18 11:41 Source: patient Mode of arrival: Ambulatory Limitations: No Limitations - History of Present Illness Initial comments: PCP LORENA ROBERSON Patient is a 37-year-old obese -[place] female who comes to the ER today complaining of a 1 day history of right lower extremity swelling. Patient has a history of DVT. Patient was treated for costochondritis last week. The pain has gotten any better. On admission to the ER patient is 99. Her oxygen saturation on room air is 98. At the time of admission she is complaining of no chest pain. 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 She is on Elavil was compliant per her history. Patient is in no distress on arrival. Patient has a history of DVTs and PE. She filled Coumadin treatment. She states that she developed clot on Coumadin. At that time she was placed on Lovenox and she developed hematomas of her abdomen. She was then changed to [place] had complications of bleeding. She has been on Elavil was for 16 months and has had no problems to this time. Other home medications include levothyroxine, clonazepam, pravastatin and a new medication which patient does not recall the name of for her urinary leaking. This medicine was started last week. Patient does not have menstrual periods because she's had an endometrial ablation. Past medical history positive for pernicious anemia, obesity, and ischemic CVA in 2011, hyperlipidemia, hypot hyroidism, DVT first diagnosed in 2007, PE diagnosed in 2014. Past surgical history includes cholecystectomy, , colposcopy, endometrial ablation. - Related Data Home Medications Medication Instructions Recorded Confirmed Last Taken Apixaban [Eliquis] 2.5 mg PO BID 08/31/16 08/03/17 08/02/17 clonazePAM [ Klonopin] 0.5 mg PO BID 08/31/16 08/03/17 08/02/17 Levothyroxine [Synthroid] 100 mcg PO QAM 08/03/17 08/03/17 08/02/17 Pravastatin Sodium [Pravastatin] 10 mg PO QHS 08/03/17 08/03/17 08/02/17 Previous Rx's Medication Instructions Recorded Last Taken Type Levothyroxine [Synthroid] 150 mcg PO QAM #30 tablet 11/29/17 Unknown Rx Famotidine [Pepcid] 40 mg PO DAILY #10 tablet 01/27/18 Unknown Rx diphenhydrAMINE [Benadryl CAP] 50 mg PO Q8HR PRN #20 capsule 01/27/18 Unknown Rx predniSONE [Deltasone] 60 mg PO DAILY 4 Days tablet 01/27/18 Unknown Rx Ibuprofen [Motrin 800 MG tab] 800 mg PO Q8HR PRN #20 tablet 05/30/18 Unknown Rx Allergies Allergy/AdvReac Type Severity Reaction Status Date / Time iron dextran complex Allergy Severe Swelling Verified 02/13/18 18:48 carbamazepine [From Tegretol] Allergy Angioedema Verified 02/13/18 18:48 ED Review of Systems ROS: Stated complaint: RT LEG/ANKLE SWELLING Other details as noted in HPI Comment: All other systems reviewed and negative ED Past Medical Hx - Past Medical History Hx CVA: Yes (2011 TIA) Hx Congestive Heart Failure: No Hx Diabetes: No Hx Deep Vein Thrombosis: Yes (x6) Hx Pulmonary Embolism: Yes (2004) Hx Psychiatric Treatment: Yes (bipolar disorder) Hx Asthma: No Hx COPD: No Additional medical history: Iron deficency anemia LUPUS DVT. PE, endometriosis. hypothyroid - Surgical History Hx Cholecystectomy: Yes Additional Surgical History: endometrial ablation. D&C - Family History Family history: no significant - Social History Smoking Status: Never Smoker Substance Use Type: None - Medications Home Medications: Home Medications Medication Instructions Recorded Confirmed Last Taken Type Apixaban [Eliquis] 2.5 mg PO BID 08/31/16 08/03/17 08/02/17 History clonazePAM [ Klonopin] 0.5 mg PO BID 08/31/16 08/03/17 08/02/17 History Levothyroxine [Synthroid] 100 mcg PO QAM 08/03/17 08/03/17 08/02/17 History Pravastatin Sodium [Pravastatin] 10 mg PO QHS 08/03/17 08/03/17 08/02/17 History Levothyroxine [Synthroid] 150 mcg PO QAM #30 tablet 11/29/17 Unknown Rx Famotidine [Pepcid] 40 mg PO DAILY #10 tablet 01/27/18 Unknown Rx diphenhydrAMINE [Benadryl CAP] 50 mg PO Q8HR PRN #20 capsule 01/27/18 Unknown Rx predniSONE [Deltasone] 60 mg PO DAILY 4 Days tablet 01/27/18 Unknown Rx Ibuprofen [Motrin 800 MG tab] 800 mg PO Q8HR PRN #20 tablet 05/30/18 Unknown Rx ED Physical Exam - General Limitations: No Limitations - Other Other exam information: WDWN patient in NAD VS per RN flow sheet Alert and oriented to person, place and time. S1-S2. No S3 or S4. No systolic or diastolic murmur. No JVD. RLE mild edema. dp plus 2 bilateral. neg hari bilateral Lungs clear to auscultation bilaterally anteriorly and posteriorly. Abdomen soft nontender bowel sounds 4. Moves all extremities well. Mood and affect appropriate. ED Course Vital Signs 06/08/18 06/08/18 11:24 11:33 Temperature 98.5 F Pulse Rate 99 H Respiratory 22 16 Rate Blood Pressure 128/86 O2 Sat by Pulse 98 Oximetry ED Medical Decision Making - Lab Data Result diagrams: 06/08/18 11:46 06/08/18 11:49 - Radiology Data Radiology results: report reviewed, image reviewed - Medical Decision Making Lab Results 06/08/18 06/08/18 06/08/18 Range/Units 11:46 11:49 12:00 WBC 6.5 (4.5-11.0) K/mm3 RBC 4.35 (3.65-5.03) M/mm3 Hgb 10.5 (10.1-14.3) gm/dl Hct 33.0 (30.3-42.9) % MCV 76 L (79-97) fl MCH 24 L (28-32) pg MCHC 32 (30-34) % RDW 17.2 H (13.2-15.2) % Plt Count 364 (140-440) K/mm3 Lymph % (Auto) 23.5 (13.4-35.0) % [place] % (Auto) 7.0 (0.0-7.3) % Eos % (Auto) 5.5 H (0.0-4.3) % Baso % (Auto) 0.9 (0.0-1.8) % Lymph # 1.5 (1.2-5.4) K/mm3 [place] # 0.5 (0.0-0.8) K/mm3 Eos # 0.4 (0.0-0.4) K/mm3 Baso # 0.1 (0.0-0.1) K/mm3 Seg Neutrophils % 63.1 (40.0-70.0) % Seg Neutrophils # 4.1 (1.8-7.7) K/mm3 Sodium 140 (137-145) mmol/L Potassium 3.7 (3.6-5.0) mmol/L Chloride 104.3 (98-107) mmol/L Carbon Dioxide 23 (22-30) mmol/L Anion Gap 16 mmol/L BUN 5 L (7-17) mg/dL Creatinine 0.7 (0.7-1.2) mg/dL Estimated GFR > 60 ml/min BUN/Creatinine Ratio 7 % Glucose 126 H (65-100) mg/dL Calcium 8.7 (8.4-10.2) mg/dL Total Bilirubin 0.30 (0.1-1.2) mg/dL AST 41 H (5-40) units/L ALT 25 (7-56) units/L Alkaline Phosphatase 61 (35-129) units/L Troponin T < 0.010 (0.00-0.029) ng/mL NT-Pro-B Natriuret Pep < 5 < 5 (0-450) pg/mL Total Protein 7.2 (6.3-8.2) g/dL Albumin 3.9 (3.9-5) g/dL Albumin/Globulin Ratio 1.2 % 06/08/18 Range/Units 12:00 WBC (4.5-11.0) K/mm3 RBC (3.65-5.03) M/mm3 Hgb (10.1-14.3) gm/dl Hct (30.3-42.9) % MCV (79-97) fl MCH (28-32) pg MCHC (30-34) % RDW (13.2-15.2) % Plt Count (140-440) K/mm3 Lymph % (Auto) (13.4-35.0) % [place] % (Auto) (0.0-7.3) % Eos % (Auto) (0.0-4.3) % Baso % (Auto) (0.0-1.8) % Lymph # (1.2-5.4) K/mm3 [place] # (0.0-0.8) K/mm3 Eos # (0.0-0.4) K/mm3 Baso # (0.0-0.1) K/mm3 Seg Neutrophils % (40.0-70.0) % Seg Neutrophils # (1.8-7.7) K/mm3 Sodium (137-145) mmol/L Potassium (3.6-5.0) mmol/L Chloride (98-107) mmol/L Carbon Dioxide (22-30) mmol/L Anion Gap mmol/L BUN (7-17) mg/dL Creatinine (0.7-1.2) mg/dL Estimated GFR ml/min BUN/Creatinine Ratio % Glucose (65-100) mg/dL Calcium (8.4-10.2) mg/dL Total Bilirubin (0.1-1.2) mg/dL AST (5-40) units/L ALT (7-56) units/L Alkaline Phosphatase (35-129) units/L Troponin T < 0.010 (0.00-0.029) ng/mL NT-Pro-B Natriuret Pep (0-450) pg/mL Total Protein (6.3-8.2) g/dL Albumin (3.9-5) g/dL Albumin/Globulin Ratio % Vital Signs 06/08/18 06/08/18 11:24 11:33 Temperature 98.5 F Pulse Rate 99 H Respiratory 22 16 Rate Blood Pressure 128/86 O2 Sat by Pulse 98 Oximetry us neg for dvt ct neg pe on eloquis will dc home with heme/onc follow up. I've discussed findings with pt. encouraged support hose, leg elevation and dietary modifications. 1630 on dc the RN gave me a phone number to call. She stated that Dr Castillos office called stating they see no DVT on ultrasound. I called the office back and no one there has even spoke to the patient. We should be cautious if calls come for further information given potential HIPAA violations. I got the fax number for Dr Castillo and will send the faxed reports to the office. CTA AND ULTRASOUND TO BE FAXED TO HEMATOLOGY DR CASTILLO AT FAX [phone] THEIR PHONE NO IS [phone] Critical care attestation.: If time is entered above; I have spent that time in minutes in the direct care of this critically ill patient, excluding procedure time. ED Disposition Clinical Impression: Chronic deep vein thrombosis (DVT), Venous reflux, group home current use of anticoagulant therapy, Obese Disposition: DC-01 TO HOME OR SELFCARE Is pt being admited?: No Does the pt Need Aspirin: No Condition: Stable Instructions: Deep Venous Thrombosis (ED), Leg Edema (ED) Additional Instructions: DIET TOLERATED MEDS ORDERED TODAY IN ER FOLLOW INSTRUCTIONS ON THE BOTTLE FOLLOW UP PCP WITHIN 48 HOURS TO ENSURE YOU ARE GETTING BETTER ACTIVITY TOLERATED MOTRIN OR TYLENOL FOR PAIN OR FEVER RETURN TO THE ER FOR WORSENING SYMPTOMS NOT RELIEVED BY YOUR MEDICATIONS. CONTINUE HOME MEDS PER ROUTINE. Referrals: RICCI CALVIN MD [Primary Care Provider] - 3-5 Days Time of Disposition: 15:04
--- NOTE | 2018-06-08 18:15 | Vascular Lab Report ---
PROCEDURE: VL VENOUS DUPLEX LE BILAT TECHNIQUE: Ultrasound deep venous system bilateral lower extremities with pulsed color Doppler evalu ation HISTORY: pain rle COMPARISONS: FINDINGS: Ultrasound of the deep venous system of the left lower extremity from the common femoral through the visualized proximal calf veins demonstrates normal compressibility. Normal sonographic appearance and normal flow on pulsed and color Doppler evaluation In the right lower extremity from the common femoral through the superficial femoral veins are is nor mal compressibility and flow. There is some minimal thickening and incomplete compressibility with pa rtial compression of the right distal popliteal vein with flow seen centrally also noted is reflux an d incomplete compressibility within the right peroneal vein with flow present. IMPRESSION: Findings most consistent with chronic thrombus right popliteal and proximal calf veins No evidence for acute occlusive acute deep venous thrombosis bilateral. This document is electronically signed by Mu Villalobos MD., Jun 08 2018 06:13:26 PM ET
== END 2018-06-08 15:17 | disposition home or self-care (01) ==
LOC: ED 11:09
DX: K64.5 Perianal venous thrombosis (principal); Z79.01 Long term (current) use of anticoagulants
CPT/HCPCS: 36415; 71275; 80053; 83880; 84484; 85025; 93005; 93010; 93970; 99284; Q9967

== ENCOUNTER 2018-07-29 12:59 | Emergency (ER) | payer MEDICAID ==
--- NOTE | 2018-07-29 13:22 | Emergency Department Report ---
Blank Doc - Documentation Documentation: 38 y/o female with factor V s/p tonsillectomy July 08 with bleeding complicat ions requiring post surgical sutures now has pain for the last 3 days. History of blood clots x 6.
[2018-07-29] MEDS ORDERED: LIDOCAINE VISCOUS 2% PO ONE ×3 (14:37→15:14)
[2018-07-29 14:48] VITALS: BP 114/80
--- NOTE | 2018-07-29 15:01 | Emergency Department Report ---
ED General Adult HPI - General Chief complaint: Sore Throat Stated complaint: TONSILLECTOMP PAIN Time Seen by Provider: 07/29/18 13:10 Source: patient Mode of arrival: Ambulatory Limitations: No Limitations - History of Present Illness Initial comments: Patient is a 38-year-old female past medical history of tonsillectomy who presents with sore throat that's been going on for the last month. Patient states that she took some [place] however she feels that just puts her to sleep. Patient states that pain as a 10 out of 10 nothing makes it better and s wallowing makes it worse. - Related Data Home Medications Medication Instructions Recorded Confirmed Last Taken Apixaban [Eliquis] 2.5 mg PO BID 08/31/16 08/03/17 08/02/17 clonazePAM [ Klonopin] 0.5 mg PO BID 08/31/16 08/03/17 08/02/17 Levothyroxine [Synthroid] 100 mcg PO QAM 08/03/17 08/03/17 08/02/17 Pravastatin Sodium [Pravastatin] 10 mg PO QHS 08/03/17 08/03/17 08/02/17 Previous Rx's Medication Instructions Recorded Last Taken Type Levothyroxine [Synthroid] 150 mcg PO QAM #30 tablet 11/29/17 Unknown Rx Famotidine [Pepcid] 40 mg PO DAILY #10 tablet 01/27/18 Unknown Rx diphenhydrAMINE [Benadryl CAP] 50 mg PO Q8HR PRN #20 capsule 01/27/18 Unknown Rx predniSONE [Deltasone] 60 mg PO DAILY 4 Days tablet 01/27/18 Unknown Rx Ibuprofen [Motrin 800 MG tab] 800 mg PO Q8HR PRN #20 tablet 05/30/18 Unknown Rx Allergies Allergy/AdvReac Type Severity Reaction Status Date / Time iron dextran complex Allergy Severe Swelling Verified 07/29/18 13:00 carbamazepine [From Tegretol] Allergy Angioedema Verified 07/29/18 13:00 ED Review of Systems ROS: Stated complaint: TONSILLECTOMP PAIN Other details as noted in HPI Constitutional: denies: chills, fever Eyes: denies: eye pain, eye discharge, vision change ENT: throat pain. denies: ear pain Respiratory: denies: cough, shortness of breath, wheezing Cardiovascular: denies: chest pain, palpitations Endocrine: no symptoms reported Gastrointestinal: denies: abdominal pain, nausea, diarrhea Genitourinary: denies: urgency, dysuria, discharge Musculoskeletal: denies: back pain, joint swelling, arthralgia Skin: denies: rash, lesions Neurological: denies: headache, weakness, paresthesias Psychiatric: denies: anxiety, depression Hematological/Lymphatic: denies: easy bleeding, easy bruising ED Past Medical Hx - Past Medical History Hx CVA: Yes (2011 TIA) Hx Congestive Heart Failure: No Hx Diabetes: No Hx Deep Vein Thrombosis: Yes Hx Pulmonary Embolism: Yes Hx Psychiatric Treatment: Yes (bipolar disorder) Hx Asthma: No Hx COPD: No Additional medical history: Iron deficency anemia LUPUS DVT. PE, endometriosis. hypothyroid - Surgical History Hx Cholecystectomy: Yes Additional Surgical History: endometrial ablation. D&C - Social History Smoking Status: Never Smoker Substance Use Type: Prescribed - Medications Home Medications: Home Medications Medication Instructions Recorded Confirmed Last Taken Type Apixaban [Eliquis] 2.5 mg PO BID 08/31/16 08/03/17 08/02/17 History clonazePAM [ Klonopin] 0.5 mg PO BID 08/31/16 08/03/17 08/02/17 History Levothyroxine [Synthroid] 100 mcg PO QAM 08/03/17 08/03/17 08/02/17 History Pravastatin Sodium [Pravastatin] 10 mg PO QHS 08/03/17 08/03/17 08/02/17 History Levothyroxine [Synthroid] 150 mcg PO QAM #30 tablet 11/29/17 Unknown Rx Famotidine [Pepcid] 40 mg PO DAILY #10 tablet 01/27/18 Unknown Rx diphenhydrAMINE [Benadryl CAP] 50 mg PO Q8HR PRN #20 capsule 01/27/18 Unknown Rx predniSONE [Deltasone] 60 mg PO DAILY 4 Days tablet 01/27/18 Unknown Rx Ibuprofen [Motrin 800 MG tab] 800 mg PO Q8HR PRN #20 tablet 05/30/18 Unknown Rx ED Physical Exam - General Limitations: No Limitations General appearance: alert, in no apparent distress - Head Head exam: Present: atraumatic, normocephalic - Eye Eye exam: Present: normal appearance - ENT ENT exam: Present: mucous membranes moist - Neck Neck exam: Present: normal inspection - Respiratory Respiratory exam: Present: normal lung sounds bilaterally. Absent: respiratory distress - Cardiovascular Cardiovascular Exam: Present: regular rate, normal rhythm. Absent: systolic murmur, diastolic murmur, rubs, gallop - GI/Abdominal GI/Abdominal exam: Present: soft, normal bowel sounds - Extremities Exam Extremities exam: Present: normal inspection - Back Exam Back exam: Present: normal inspection - Neurological Exam Neurological exam: Present: alert, oriented X3 - Psychiatric Psychiatric exam: Present: normal affect, normal mood - Skin Skin exam: Present: warm, dry, intact, normal color. Absent: rash ED Course Vital Signs 07/29/18 07/29/18 13:11 14:47 Temperature 98.2 F 97.9 F Pulse Rate 78 83 Respiratory 18 16 Rate Blood Pressure 114/78 Blood Pressure 114/80 [Left] O2 Sat by Pulse 98 100 Oximetry ED Medical Decision Making - Medical Decision Making Chief medical diagnosis post-tonsillectomy pain Differential diagnosis: Viral pharyngitis, dry mouth Patient viscous lidocaine to swallow. Patient's pain is better I will have outpatient follow-up with her ENT physician. Critical care attestation.: If time is entered above; I have spent that time in minutes in the direct care of this critically ill patient, excluding procedure time. ED Disposition Clinical Impression: Throat pain in adult Disposition: DC-01 TO HOME OR SELFCARE Is pt being admited?: No Does the pt Need Aspirin: No Condition: Stable Referrals: CHERYL LAINEZ MD [Primary Care Provider] - 3-5 Days
== END 2018-07-29 15:25 | disposition home or self-care (01) ==
LOC: ED 12:59
DX: R07.0 Pain in throat (principal); Z86.73 Personal history of transient ischemic attack (TIA), and cerebral infarction without residual deficits; Z86.718 Personal history of other venous thrombosis and embolism; Z90.49 Acquired absence of other specified parts of digestive tract; Z79.899 Other long term (current) drug therapy; Z88.8 Allergy status to other drugs, medicaments and biological substances
CPT/HCPCS: 99282

== ENCOUNTER 2019-07-13 22:45 | Emergency (ER) | payer MEDICAID, OTHER ==
[2019-07-13 23:02] VITALS: BP 141/92
--- NOTE | 2019-07-13 23:41 | XRay Report ---
CHEST 1 VIEW 07/13/2019 11:33 PM INDICATION / CLINICAL INFORMATION: Chest Pain. COMPARISON: CTA chest from 06/08/2018. FINDINGS: SUPPORT DEVICES: None. HEART / MEDIASTINUM: Normal heart size. A hiatal hernia is again seen without significant change. LUNGS / PLEURA: No significant pulmonary or pleural abnormality. No pneumothorax. ADDITIONAL FINDINGS: No significant additional findings. IMPRESSION: No acute abnormality of the chest. Signer Name: David Chew MD Signed: 07/13/2019 11:36 PM Workstation Name: [id number]
[2019-07-13 23:52] LABS: Basophils % (Auto) 0.6 % (0.0-1.8); Eosinophils # (Auto) 0.1 K/mm3 (0.0-0.4); Eosinophils % (Auto) 1.6 % (0.0-4.3); Hematocrit 41.2 % (30.3-42.9); Hemoglobin 13.5 gm/dl (10.1-14.3); Lymphocytes # (Auto) 2.1 K/mm3 (1.2-5.4); Lymphocytes % (Auto) 24.1 % (13.4-35.0); Mean Corpuscular HGB Conc 33 % (30-34); Mean Corpuscular Volume 82 fl (79-97); Monocytes # (Auto) 0.7 K/mm3 (0.0-0.8); Monocytes % (Auto) 7.9 % (0.0-7.3); Platelet Count 374 K/mm3 (140-440); Red Cell Distribution Width 14.2 % (13.2-15.2)
[2019-07-14 00:11] LABS: BUN/Creatinine Ratio 9; Blood Urea Nitrogen 8 mg/dL (7-17); Calcium 9.8 mg/dL (8.4-10.2); Hemolysis Index 5
[2019-07-14] MEDS ORDERED: POTASSIUM CHLORIDE ER 10 MEQ TAB PO ONE (01:46)
--- NOTE | 2019-07-14 01:57 | Emergency Department Report ---
HPI - General Chief Complaint: Arrhythmia/Palpitations Time Seen by Provider: 07/14/19 01:46 - HPI HPI: This is a 39-year-old female presents to the emergency department with a complaint of some muscle cramping and "heart fluttering" since she was started on HCTZ about a week ago. Patient has a history of TIA, DVT/PE on Eliquis, bipolar disorder, anemia, hypothyroidism. She currently has a heart monitor in place that has been there for the past 3 weeks secondary to some previous tachyarrhythmia and she is also on metoprolol for this. Patient denies any fever, shortness of breath, chest pain, nausea vomiting or diaphoresis. No recent travel or sick contacts at home. She has not taken anything for symptoms prior to presentation today. The patient follows with [facility] cardiology and her primary care physician is Dr. Calvin. ED Past Medical Hx - Past Medical History Previous Medical History?: Yes Hx CVA: Yes (2011 TIA) Hx Congestive Heart Failure: No Hx Diabetes: No Hx Deep Vein Thrombosis: Yes Hx Pulmonary Embolism: Yes Hx Psychiatric Treatment: Yes (bipolar disorder) Hx Asthma: No Hx COPD: No Additional medical history: Iron deficency anemia LUPUS DVT. PE, endometriosis. hypothyroid - Surgical History Past Surgical History?: Yes Hx Pacemaker: Yes Hx Cholecystectomy: Yes Additional Surgical History: endometrial ablation. D&C, HYSTERECTOMY - Social History Smoking Status: Never Smoker Substance Use Type: None - Medications Home Medications: Home Medications Medication Instructions Recorded Confirmed Last Taken Type Apixaban [Eliquis] 2.5 mg PO BID 08/31/16 08/03/17 08/02/17 History clonazePAM [ Klonopin] 0.5 mg PO BID 08/31/16 08/03/17 08/02/17 History Levothyroxine [Synthroid] 100 mcg PO QAM 08/03/17 08/03/17 08/02/17 History Pravastatin Sodium [Pravastatin] 10 mg PO QHS 08/03/17 08/03/17 08/02/17 History Levothyroxine [Synthroid] 150 mcg PO QAM #30 tablet 11/29/17 Unknown Rx Famotidine [Pepcid] 40 mg PO DAILY #10 tablet 01/27/18 Unknown Rx diphenhydrAMINE [Benadryl CAP] 50 mg PO Q8HR PRN #20 capsule 01/27/18 Unknown Rx predniSONE [Deltasone] 60 mg PO DAILY 4 Days tablet 01/27/18 Unknown Rx Ibuprofen [Motrin 800 MG tab] 800 mg PO Q8HR PRN #20 tablet 05/30/18 Unknown Rx ED Review of Systems ROS: Stated complaint: HEART FLUTTER MUSCLE SPASMS Other details as noted in HPI Comment: All other systems reviewed and negative Constitutional: denies: chills, fever Eyes: denies: eye pain, vision change ENT: denies: ear pain, throat pain Respiratory: denies: cough, shortness of breath Cardiovascular: palpitations. denies: chest pain Gastrointestinal: denies: abdominal pain, vomiting Genitourinary: denies: dysuria, discharge Musculoskeletal: myalgia. denies: joint swelling Skin: denies: rash, lesions Neurological: denies: headache, weakness Physical Exam - Physical Exam Vital Signs: Vital Signs 07/13/19 07/14/19 23:01 01:40 Temperature 98.3 F Pulse Rate 94 H Respiratory 18 18 Rate Blood Pressure 141/92 O2 Sat by Pulse 95 100 Oximetry Physical Exam: GENERAL: The patient is well-developed well-nourished. HENT: Normocephalic. Atraumatic. Patient has moist mucous membranes. EYES: Extraocular motions are intact. NECK: Supple. Trachea is midline. CHEST/LUNGS: Clear to auscultation. There is no respiratory distress noted. HEART/CARDIOVASCULAR: Regular. There is no tachycardia. There is no murmur. ABDOMEN: Abdomen is soft, nontender. Patient has normal bowel sounds. SKIN: Skin is warm and dry. NEURO: The patient is awake, alert, and oriented. The patient is cooperative. Normal speech. MUSCULOSKELETAL: There is no tenderness or deformity. There is no limitation range of motion. There is no evidence of acute injury. ED Course Vital Signs 07/13/19 07/14/19 23:01 01:40 Temperature 98.3 F Pulse Rate 94 H Respiratory 18 18 Rate Blood Pressure 141/92 O2 Sat by Pulse 95 100 Oximetry ED Medical Decision Making - Lab Data Result diagrams: 07/13/19 23:35 07/13/19 23:35 - EKG Data -: EKG Interpreted by Me EKG shows normal: sinus rhythm, axis, intervals, QRS complexes, ST-T waves Rate: normal - EKG Data When compared to previous EKG there are: previous EKG unavailable Interpretation: normal EKG - Radiology Data Radiology results: image reviewed interpreted by me: Chest x-ray does not show any acute process. There are no pleural effusions, obvious pneumonia and there is no pneumothorax. - Medical Decision Making This patient presents to the emergency department with a complaint of some muscle cramping and palpitations that has been going on since the patient was started on HCTZ by her central office repairer. Patient's labs are unremarkable including CBC, metabolic panel, troponin. EKG is normal without ST elevation [place] or any dysrhythmia. Chest x-ray does not show any pneumonia, pleural effusions, focal consolidation, pneumothorax, or any other acute process. The patient is not complaining of any chest pain or shortness of breath and is low suspicion for a pulmonary embolism as she is also on anticoagulation that she says she takes compliantly. Patient has good outpatient follow-up with primary care and cardiology. Her mild hypokalemia will be replaced with potassium chloride. She currently has a 30-day heart monitor on her. The patient will return to the emergency department with any worsening of her symptoms or any acute distress. Critical Care Time: No Critical care attestation.: If time is entered above; I have spent that time in minutes in the direct care of this critically ill patient, excluding procedure time. ED Disposition Clinical Impression: Muscle cramps, Palpitations, Hypokalemia Disposition: - TO HOME OR SELFCARE Is pt being admited?: No Condition: Stable Instructions: Palpitations (ED), Hypokalemia (ED), Muscle Cramp (ED) Additional Instructions: Please follow-up with your primary care physician and cardiologists. Return to the emergency department with any worsening of your symptoms or any acute distress. Referrals: RICCI CALVIN MD [Primary Care Provider] - 2-3 Days Time of Disposition: 02:06
== END 2019-07-14 02:15 | disposition home or self-care (01) ==
LOC: ED 22:45
DX: R25.2 Cramp and spasm (principal); R00.2 Palpitations; E87.6 Hypokalemia; F31.9 Bipolar disorder, unspecified; Z86.73 Personal history of transient ischemic attack (TIA), and cerebral infarction without residual deficits; Z86.718 Personal history of other venous thrombosis and embolism; Z86.711 Personal history of pulmonary embolism; Z90.49 Acquired absence of other specified parts of digestive tract; Z90.710 Acquired absence of both cervix and uterus; Z98.890 Other specified postprocedural states; Z79.1 Long term (current) use of non-steroidal anti-inflammatories (NSAID); Z79.899 Other long term (current) drug therapy; Z88.8 Allergy status to other drugs, medicaments and biological substances
CPT/HCPCS: 36415; 71045; 80048; 83735; 84484; 85025

== ENCOUNTER 2020-05-12 00:11 | Emergency (ER) | payer MEDICAID, OTHER ==
[2020-05-12] MEDS ORDERED: FAMOTIDINE 20 MG/2 ML INJ IV ONE (00:59)
[2020-05-12] MEDS ORDERED: dexAMETHasone 20 MG/5 ML VIAL IV ONE (00:59)
--- NOTE | 2020-05-12 01:20 | Emergency Department Report ---
ED General Adult HPI - General Chief complaint: Allergic Reaction Stated complaint: THROAT PAIN/ALLERGIC REACTION/CAN'T SWALLOW Time Seen by Provider: 05/12/20 00:53 Source: patient Mode of arrival: Ambulatory Limitations: No Limitations - History of Present Illness Initial comments: Patient is a 39-year-old female presents emergency room complaints of a possible allergic reaction that began at 10 PM today. She states that 9 PM she ordered seafood from a restaurant that she had not been to before. She denies any seafood allergies but is unsure what it was cooked in. She states her only allergies are iron dextran and Tegretol. She denies any known food allergies. She states that approximately an hour after she had the food her throat began to feel tight. She states that she has some discomfort with swallowing. She is able to tolerate her secretions and p.o. intake. She states that she took 2 capsules of Benadryl at 10 PM. She denies any rash, itching, facial swelling, vomiting, shortness of breath. Past medical history of lupus, TIA, DVT/PE. - Related Data Home Medications Medication Instructions Recorded Confirmed Last Taken Apixaban [Eliquis] 2.5 mg PO BID 08/31/16 08/03/17 08/02/17 clonazePAM [ Klonopin] 0.5 mg PO BID 08/31/16 08/03/17 08/02/17 Levothyroxine [Synthroid] 100 mcg PO QAM 08/03/17 08/03/17 08/02/17 Pravastatin Sodium [Pravastatin] 10 mg PO QHS 08/03/17 08/03/17 08/02/17 Previous Rx's Medication Instructions Recorded Last Taken Type Levothyroxine [Synthroid] 150 mcg PO QAM #30 tablet 11/29/17 Unknown Rx Famotidine [Pepcid] 40 mg PO DAILY #10 tablet 01/27/18 Unknown Rx diphenhydrAMINE [Benadryl CAP] 50 mg PO Q8HR PRN #20 capsule 01/27/18 Unknown Rx predniSONE [Deltasone] 60 mg PO DAILY 4 Days tablet 01/27/18 Unknown Rx Ibuprofen [Motrin 800 MG tab] 800 mg PO Q8HR PRN #20 tablet 05/30/18 Unknown Rx Cetirizine HCl [Zyrtec 10mg tab] 10 mg PO DAILY #10 tablet 05/12/20 Unknown Rx Famotidine [Pepcid] 40 mg PO QHS #10 tablet 05/12/20 Unknown Rx Prednisone [predniSONE 10 mg 10 mg PO .TAPER #1 tab.ds.pk 05/12/20 Unknown Rx (6-Day Pack, 21 Tabs)] diphenhydrAMINE [Benadryl CAP] 25 mg PO Q8HR PRN #14 capsule 05/12/20 Unknown Rx Allergies Allergy/AdvReac Type Severity Reaction Status Date / Time iron dextran complex Allergy Severe Swelling Verified 07/29/18 13:00 carbamazepine [From Tegretol] Allergy Angioedema Verified 07/29/18 13:00 ED Review of Systems ROS: Stated complaint: THROAT PAIN/ALLERGIC REACTION/CAN'T SWALLOW Other details as noted in HPI Comment: All other systems reviewed and negative ED Past Medical Hx - Past Medical History Previous Medical History?: Yes Hx CVA: Yes (2011 TIA) Hx Congestive Heart Failure: No Hx Diabetes: No Hx Deep Vein Thrombosis: Yes Hx Pulmonary Embolism: Yes Hx Psychiatric Treatment: Yes (bipolar disorder) Hx Asthma: No Hx COPD: No Additional medical history: Iron deficency anemia LUPUS DVT. PE, endometriosis. 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 D&C, HYSTERECTOMY - Social History Smoking Status: Never Smoker - Medications Home Medications: Home Medications Medication Instructions Recorded Confirmed Last Taken Type Apixaban [Eliquis] 2.5 mg PO BID 08/31/16 08/03/17 08/02/17 History clonazePAM [ Klonopin] 0.5 mg PO BID 08/31/16 08/03/17 08/02/17 History Levothyroxine [Synthroid] 100 mcg PO QAM 08/03/17 08/03/17 08/02/17 History Pravastatin Sodium [Pravastatin] 10 mg PO QHS 08/03/17 08/03/17 08/02/17 History Levothyroxine [Synthroid] 150 mcg PO QAM #30 tablet 11/29/17 Unknown Rx Famotidine [Pepcid] 40 mg PO DAILY #10 tablet 01/27/18 Unknown Rx diphenhydrAMINE [Benadryl CAP] 50 mg PO Q8HR PRN #20 capsule 01/27/18 Unknown Rx predniSONE [Deltasone] 60 mg PO DAILY 4 Days tablet 01/27/18 Unknown Rx Ibuprofen [Motrin 800 MG tab] 800 mg PO Q8HR PRN #20 tablet 05/30/18 Unknown Rx Cetirizine HCl [Zyrtec 10mg tab] 10 mg PO DAILY #10 tablet 05/12/20 Unknown Rx Famotidine [Pepcid] 40 mg PO QHS #10 tablet 05/12/20 Unknown Rx Prednisone [predniSONE 10 mg 10 mg PO .TAPER #1 tab.ds.pk 05/12/20 Unknown Rx (6-Day Pack, 21 Tabs)] diphenhydrAMINE [Benadryl CAP] 25 mg PO Q8HR PRN #14 capsule 05/12/20 Unknown Rx ED Physical Exam - General Limitations: No Limitations General appearance: alert, in no apparent distress - Head Head exam: Present: atraumatic, normocephalic - Eye Eye exam: Present: normal appearance - ENT ENT exam: Present: normal orophraynx, mucous membranes moist, other (no angioedema, uvula is midline, no uvular edema or deviation, no muffled voice, tolerating secretions, airway intact) - Respiratory Respiratory exam: Present: normal lung sounds bilaterally. Absent: respiratory distress, wheezes, rales, rhonchi, stridor, chest wall tenderness, accessory muscle use, decreased breath sounds, prolonged expiratory - Cardiovascular Cardiovascular Exam: Present: regular rate, normal rhythm, normal heart sounds. Absent: systolic murmur, diastolic murmur, rubs, gallop - Neurological Exam Neurological exam: Present: alert, oriented X3 - Psychiatric Psychiatric exam: Present: normal affect, normal mood - Skin Skin exam: Present: warm, dry, intact ED Course Vital Signs 05/12/20 05/12/20 00:41 02:34 Temperature 98.4 F Pulse Rate 96 H 80 Respiratory 12 16 Rate Blood Pressure 149/94 Blood Pressure 143/87 [Left] O2 Sat by Pulse 98 99 Oximetry ED Medical Decision Making - Lab Data Vital Signs 05/12/20 05/12/20 00:41 02:34 Temperature 98.4 F Pulse Rate 96 H 80 Respiratory 12 16 Rate Blood Pressure 149/94 Blood Pressure 143/87 [Left] O2 Sat by Pulse 98 99 Oximetry - Medical Decision Making Patient is a 39-year-old female presents emergency room complaints of a possible allergic reaction that began at 10 PM today. She states that 9 PM she ordered seafood from a restaurant that she had not been to before. She denies any seafood allergies but is unsure what it was cooked in. She states her only allergies are iron dextran and Tegretol. She denies any known food allergies. She states that approximately an hour after she had the food her throat began to feel tight. She states that she has some discomfort with swallowing. She is able to tolerate her secretions and p.o. intake. She states that she took 2 capsules of Benadryl at 10 PM. She denies any rash, itching, facial swelling, vomiting, shortness of breath. Past medical history of lupus, TIA, DVT/PE. Vitals are stable. On exam:no angioedema, uvula is midline, no uvular edema or deviation, no muffled voice, tolerating secretions, airway intact, no respiratory distress, no accessory muscle use, no wheezing, no stridor, clear breath sounds bilaterally, no signs of rash. Patient given IV Decadron and Pepcid while in the emergency department. Patient already took 2 capsules of Benadryl at 10 PM. Patient observed while in the emergency department for a couple of dollars with no further complication. On reexamination patient states that she is feeling much better, she is tolerating p.o. intake without difficulty, she denies any further sensation of throat closing, she denies any difficulty breathing. Advised patient to avoid reaction trigger. Advised patient Please take medication as prescribed. Do not drive or operate heavy machinery while taking Benadryl due to potential for drowsiness. Follow-up with your primary care doctor for reexamination. Return to emergency room immediately for any new or worsening symptoms. Critical care attestation.: If time is entered above; I have spent that time in minutes in the direct care of this critically ill patient, excluding procedure time. ED Disposition Clinical Impression: Allergic reaction Qualifiers: Encounter type: initial encounter Qualified Code(s): T78.40XA - Allergy, unspecified, initial encounter Disposition: DC- TO HOME OR SELFCARE Is pt being admited?: No Does the pt Need Aspirin: No Condition: Stable Instructions: Food Allergy Additional Instructions: Please take medication as prescribed. Do not drive or operate heavy machinery while taking Benadryl due to potential for drowsiness. Follow-up with your primary care doctor for reexamination. Return to emergency room immediately for any new or worsening symptoms. Prescriptions: Famotidine [Pepcid] 40 mg PO QHS #10 tablet diphenhydrAMINE [Benadryl CAP] 25 mg PO Q8HR PRN #14 capsule PRN Reason: itching/rash/swelling Prednisone [predniSONE 10 mg (6-Day Pack, 21 Tabs)] 10 mg PO .TAPER #1 tab.ds.pk Cetirizine HCl [Zyrtec 10mg tab] 10 mg PO DAILY #10 tablet Referrals: your, primary care doctor [Other] - 2-3 Days Time of Disposition: 02:42 Print Language: ECUADOREAN
[2020-05-12 02:35] VITALS: BP 143/87
== END 2020-05-12 02:50 | disposition home or self-care (01) ==
LOC: ED 00:11
DX: T78.40XA Allergy, unspecified, initial encounter (principal); F31.9 Bipolar disorder, unspecified; Z90.49 Acquired absence of other specified parts of digestive tract; Z79.899 Other long term (current) drug therapy; Z88.8 Allergy status to other drugs, medicaments and biological substances
CPT/HCPCS: 96374; 96375; 99282; J1100

== ENCOUNTER 2020-06-12 19:32 | Emergency (ER) | payer OTHER | END 2020-06-12 19:35 | disposition left against medical advice (07) | LOC: ED 19:32 | DX: F23 Brief psychotic disorder (principal); Z53.21 Procedure and treatment not carried out due to patient leaving prior to being seen by health care provider ==

== ENCOUNTER 2020-06-26 15:33 | Emergency (ER) | payer OTHER ==
[2020-06-26 16:10] VITALS: BP 172/93
--- NOTE | 2020-06-26 19:01 | Event Note ---
ED Screening Note Date of service: 06/26/20 Time: 18:59 ED Screening Note: 39-year-old female patient with history of multiple PEs/DVTs secondary to factor V Leiden presents to the emergency department with complaints of chest pain, dizziness, and shortness of breath. Symptoms are reminiscent of prior pulmonary embolism. Patient was off of her Xarelto for approximately 1 week last week. Her grain broker recently started her back on Eliquis. Hypertensive in triage. EKG shows inferior T-wave inversions. Patient reports allergy to iodine (itching) however she has tolerated CT w/ IV contrast for diagnosis of prior pulmonary embolism when pretreated with steroids and antihistamines. General: Awake, appropriately interactive, no acute distress. Neck: Supple. Full range of motion intact. Cardiovascular: Normal peripheral perfusion. Pulmonary: No respiratory distress. Patient is speaking normally without use of accessory muscles. Skin: No apparent rashes or lesions. Neurological: No facial asymmetry. Speech is clear. Follows commands. Patient is alert and oriented. Musculoskeletal: Moves all four extremities spontaneously with normal range of motion. Psych: Cooperative. Appropriate mood and affect. I have greeted and performed a focused rapid initial assessment of this patient. A comprehensive ED assessment and evaluation of the patient, analysis of all test results, and completion of the medical decision-making process will be conducted by additional ED providers. This initial assessment/diagnostic orders/clinical plan/treatment(s) is/are subject to change based on patients health status, clinical progression and re-assessment. Further treatment and workup at subsequent clinical provider's discretion. Patient/guardian urged not to elope from the ED as their condition may be serious if not clinically assessed and managed.
[2020-06-26 19:20] LABS: Basophils # (Auto) 0.1 K/mm3 (0.0-0.1); Basophils % (Auto) 0.8 % (0.0-1.8); Eosinophils # (Auto) 0.1 K/mm3 (0.0-0.4); Hematocrit 35.2 % (30.3-42.9); Hemoglobin 12.4 gm/dl (10.1-14.3); Lymphocytes # (Auto) 1.9 K/mm3 (1.2-5.4); Lymphocytes % (Auto) 25.8 % (13.4-35.0); Mean Corpuscular HGB Conc 35 % (30-34); Mean Corpuscular Volume 81 fl (79-97); Monocytes # (Auto) 0.5 K/mm3 (0.0-0.8); Monocytes % (Auto) 6.7 % (0.0-7.3); Platelet Count 335 K/mm3 (140-440); Red Blood Count 4.36 M/mm3 (3.65-5.03); Red Cell Distribution Width 14.4 % (13.2-15.2)
[2020-06-26 19:29] LABS: INR 1.09 (0.87-1.13)
[2020-06-26 19:31] LABS: Partial Thromboplastin Time 32.5 Sec. (24.2-36.6)
[2020-06-26 19:46] LABS: Alanine Aminotransferase 21 units/L (7-56); Albumin 4.2 g/dL (3.9-5); BUN/Creatinine Ratio 9; Blood Urea Nitrogen 7 mg/dL (7-17); Hemolysis Index 5
--- NOTE | 2020-06-27 10:50 | Electrocardiograph Report ---
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
== END 2020-06-26 19:00 | disposition left against medical advice (07) ==
LOC: ED 15:33
DX: R06.02 Shortness of breath (principal); R42 Dizziness and giddiness; R00.0 Tachycardia, unspecified; Z53.21 Procedure and treatment not carried out due to patient leaving prior to being seen by health care provider
CPT/HCPCS: 36415; 80053; 83735; 83880; 84484; 84703; 85025; 85610; 85730; 93005

== ENCOUNTER 2020-09-12 12:52 | Emergency (ER) | payer OTHER ==
--- NOTE | 2020-09-12 16:42 | Emergency Department Report ---
ED General Adult HPI - General Chief complaint: Pain General Stated complaint: R ARMPIT PAIN Time Seen by Provider: 09/12/20 15:48 Source: patient Mode of arrival: Ambulatory Limitations: No Limitations - History of Present Illness Initial comments: pt is a 40 yo female who presents to the ED with c/o pain and swelling to the right axilla that began a few days ago. she states that she then noticed swelling to above the right clavicle and right neck. she denies every having this in the past. she denies any breast lumps. she denies any fever, n/v/d, c hills, body aches, shortness of breath, chest pain. Last medical history of TIA, DVT, PE, lupus, hypothyroidism. she is on eliquis. Allergy to iron and carbamazepine. She last had a mammogram 3 years ago which she reports was normal. She last saw her EMPLOYEE COUNSELOR in January and had a clinical breast exam at that time which she states was normal. - Related Data Home Medications Medication Instructions Recorded Confirmed Last Taken Apixaban [Eliquis] 2.5 mg PO BID 08/31/16 08/03/17 08/02/17 clonazePAM [ Klonopin] 0.5 mg PO BID 08/31/16 08/03/17 08/02/17 Levothyroxine [Synthroid] 100 mcg PO QAM 08/03/17 08/03/17 08/02/17 Pravastatin Sodium [Pravastatin] 10 mg PO QHS 08/03/17 08/03/17 08/02/17 Previous Rx's Medication Instructions Recorded Last Taken Type Levothyroxine [Synthroid] 150 mcg PO QAM #30 tablet 11/29/17 Unknown Rx Famotidine [Pepcid] 40 mg PO DAILY #10 tablet 01/27/18 Unknown Rx diphenhydrAMINE [Benadryl CAP] 50 mg PO Q8HR PRN #20 capsule 01/27/18 Unknown Rx predniSONE [Deltasone] 60 mg PO DAILY 4 Days tablet 01/27/18 Unknown Rx Ibuprofen [Motrin 800 MG tab] 800 mg PO Q8HR PRN #20 tablet 05/30/18 Unknown Rx Cetirizine HCl [Zyrtec 10mg tab] 10 mg PO DAILY #10 tablet 05/12/20 Unknown Rx Famotidine [Pepcid] 40 mg PO QHS #10 tablet 05/12/20 Unknown Rx Prednisone [predniSONE 10 mg 10 mg PO .TAPER #1 tab.ds.pk 05/12/20 Unknown Rx (6-Day Pack, 21 Tabs)] diphenhydrAMINE [Benadryl CAP] 25 mg PO Q8HR PRN #14 capsule 05/12/20 Unknown Rx Acetaminophen [Tylenol] 650 mg PO Q8HR PRN #20 capsule 09/12/20 Unknown Rx traMADoL [Ultram 50 MG tab] 50 mg PO Q6HR PRN #12 tablet 09/12/20 Unknown Rx Allergies Allergy/AdvReac Type Severity Reaction Status Date / Time iron dextran complex Allergy Severe Swelling Verified 07/29/18 13:00 carbamazepine [From Tegretol] Allergy Angioedema Verified 07/29/18 13:00 ED Review of Systems ROS: Stated complaint: R ARMPIT PAIN Other details as noted in HPI Comment: All other systems reviewed and negative ED Past Medical Hx - Past Medical History Previous Medical History?: Yes Hx CVA: Yes (2011 TIA) Hx Congestive Heart Failure: No Hx Diabetes: No Hx Deep Vein Thrombosis: Yes Hx Pulmonary Embolism: Yes Hx Psychiatric Treatment: Yes (bipolar disorder) Hx Asthma: No Hx COPD: No Additional medical history: Iron deficency anemia LUPUS DVT. PE, endometriosis. 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 D&C, HYSTERECTOMY - Social History Smoking Status: Never Smoker - Medications Home Medications: Home Medications Medication Instructions Recorded Confirmed Last Taken Type Apixaban [Eliquis] 2.5 mg PO BID 08/31/16 08/03/17 08/02/17 History clonazePAM [ Klonopin] 0.5 mg PO BID 08/31/16 08/03/17 08/02/17 History Levothyroxine [Synthroid] 100 mcg PO QAM 08/03/17 08/03/17 08/02/17 History Pravastatin Sodium [Pravastatin] 10 mg PO QHS 08/03/17 08/03/17 08/02/17 History Levothyroxine [Synthroid] 150 mcg PO QAM #30 tablet 11/29/17 Unknown Rx Famotidine [Pepcid] 40 mg PO DAILY #10 tablet 01/27/18 Unknown Rx diphenhydrAMINE [Benadryl CAP] 50 mg PO Q8HR PRN #20 capsule 01/27/18 Unknown Rx predniSONE [Deltasone] 60 mg PO DAILY 4 Days tablet 01/27/18 Unknown Rx Ibuprofen [Motrin 800 MG tab] 800 mg PO Q8HR PRN #20 tablet 05/30/18 Unknown Rx Cetirizine HCl [Zyrtec 10mg tab] 10 mg PO DAILY #10 tablet 05/12/20 Unknown Rx Famotidine [Pepcid] 40 mg PO QHS #10 tablet 05/12/20 Unknown Rx Prednisone [predniSONE 10 mg 10 mg PO .TAPER #1 tab.ds.pk 05/12/20 Unknown Rx (6-Day Pack, 21 Tabs)] diphenhydrAMINE [Benadryl CAP] 25 mg PO Q8HR PRN #14 capsule 05/12/20 Unknown Rx Acetaminophen [Tylenol] 650 mg PO Q8HR PRN #20 capsule 09/12/20 Unknown Rx traMADoL [Ultram 50 MG tab] 50 mg PO Q6HR PRN #12 tablet 09/12/20 Unknown Rx ED Physical Exam - General Limitations: No Limitations General appearance: alert, in no apparent distress - Head Head exam: Present: atraumatic, normocephalic - Eye Eye exam: Present: normal appearance - ENT ENT exam: Present: mucous membranes moist - Neck Neck exam: Present: full ROM, other (right anterolateral lower neck edema, no crepitus, no erythema, no deformity). Absent: tenderness, meningismus - Respiratory Respiratory exam: Present: normal lung sounds bilaterally, other (right supraclavicular edema, no erythema, no crepitus, no increased warmth). Absent: respiratory distress, wheezes, rales, rhonchi, stridor, chest wall tenderness, accessory muscle use, decreased breath sounds, prolonged expiratory - Cardiovascular Cardiovascular Exam: Present: regular rate, normal rhythm, normal heart sounds. 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:[place] ) ED Course Vital Signs 09/12/20 09/12/20 14:12 19:17 Temperature 98.1 F 97.9 F Pulse Rate 97 H 96 H Respiratory 16 18 Rate Blood Pressure 154/89 Blood Pressure 152/84 [Right] O2 Sat by Pulse 98 96 Oximetry ED Medical Decision Making - Lab Data Result diagrams: 09/12/20 16:06 09/12/20 16:06 - Radiology Data Radiology results: report reviewed Ordering Physician: HARSHAD GRULLON Date of Service: 09/12/20 Procedure(s): CT neck w con Accession Number(s): [id number] cc: HARSHAD GRULLON CT neck w con INDICATION / CLINICAL INFORMATION: 40 years Female; supraclavicular LAD and right neck swelling. TECHNIQUE: Contiguous thin cut axial images obtained through the neck following IV contrast. Sagittal and coronal reconstructions performed by the technologist. All CT scans at this location are performed using CT dose reduction for ALARA by means of automated exposure control. COMPARISON: None available. FINDINGS: No evidence of metallic marker or vitamin E capsule to denote an area of interest. MUCOSAL SPACE: The nasopharynx, oropharynx and vallecula, oral cavity and floor of mouth, hypopharynx, and larynx are grossly normal. Parapharyngeal and retropharyngeal spaces are grossly normal. LYMPH NODES: No significant adenopathy appreciated. Scattered, mildly prominent lymph nodes are seen. No evidence of suppurative or necrotic node. SALIVARY GLANDS: Parotid, submandibular, and visualized sublingual glands are within normal limits. 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 No signs of nodule or cyst seen. PARANASAL SINUSES: Mild mucosal thickening in the mastoids. There is also mild mucosal thickening in the ethmoids. SPINE: No significant abnormality of the cervical spine appreciated. VASCULAR STRUCTURES: Vascular structures are grossly normal in appearance. ADDITIONAL FINDINGS: Dentition noted. IMPRESSION: 1. No significant adenopathy appreciated on this CT of neck. Signer Name: Jae Ng MD, III Signed: 09/12/2020 6:07 PM Workstation Name: [id number] Transcribed By: Dictated By: Jae Ng MD Electronically Authenticated By: Jae Ng MD Signed Date/Time: 09/12/201806 DD/ 57 TD/TT: Print Ordering Physician: HARSHAD GRULLON Date of Service: 09/12/20 Procedure(s): CT chest w con Accession Number(s): [id number] cc: HARSHAD GRULLON CT CHEST WITH CONTRAST INDICATION / CLINICAL INFORMATION: supraclavicular LAD, right axillary LAD. TECHNIQUE: Axial CT images were obtained through the chest after IV contrast. All CT scans at this location are performed using CT dose reduction for ALARA by means of automated exposure control. COMPARISON: None available. FINDINGS: HEART: No significant abnormality. CORONARY ARTERY CALCIFICATION: None. THORACIC AORTA: No significant abnormality. MEDIASTINUM / MAY: No significantly enlarged nodes. PLEURA: No pleural effusion. No pneumothorax. LUNGS: No infiltrate. A few nodules at the right lung base of the maximum d iameter of 7 mm. These are favored to be inflammatory. ADDITIONAL FINDINGS: Enlarged nodes right axilla with associated inflammation. The largest node measures 1.5 cm in the greatest short axis dimension. Mildly prominent left axillary nodes without adjacent inflammation. The largest measures 1 cm in the greatest short axis dimension. UPPER ABDOMEN: No significant abnormality. SKELETAL SYSTEM: No significant abnormality. IMPRESSION: 1. Enlarged nodes right axilla greater than left axilla with associated inflammation on the right. Nodes are favored to be inflammatory/reactive. 2. Incidental pulmonary nodules. INCIDENTAL PULMONARY NODULE RECOMMENDATION RECOMMENDATION: Solid Nodule size 6-8 mm -- Multiple - Low Risk Patient: CT at 3-6 months, then consider CT at 18-24 months - High Risk Patient: CT at 3-6 months, then CT at 18-24 month Note These recommendations do not apply to lung cancer screening, patients with immunosuppression, or patients with known primary cancer. Note Newly detected indeterminate nodule in persons 35 years of age or older. Persons under the age of 35 should not receive follow-up unless there is a known primary cancer. Note Perifissural Nodule is a fissure-attached/subpleural, homogeneous, solid nodule that has smooth margins and an oval, lentiform, or triangular shape. They represent about 20% of nodules detected in lung cancer screening, are invariably benign, and do not require fol low-up. Nodules 10 mm or larger (or those with suspicious features) will continue to be managed bas ed on the size criteria. Low Risk Patient -- minimal or absent history of smoking and of other known risk factors. High Risk Patient -- history of smoking or of other known risk factors. Nodule dimensions are average of long and short axes, rounded to the nearest millimeter. Based on 2017 Fleischner Society Guidelines found in Radiology 2017 284:228- 243. https://doi.org/10.1148/radiol.9239264540 https://www.ncbi.nlm.nih.gov/pmc/articles/GVU4514213/ Signer Name: Darrell Rayo MD Signed: 09/12/2020 6:04 PM Workstation Name: [id number] Transcribed By: ES Dictated By: Darrell Rayo MD Electronically Authenticated By: Darrell Rayo MD Signed Date/Time: 09/12/201803 DD/ 57 TD/TT: Print Cancel - Medical Decision Making pt is a 40 yo female who presents to the ED with c/o pain and swelling to the right axilla that began a few days ago. she states that she then noticed swelling to above the right clavicle and right neck. she denies every having this in the past. she denies any breast lumps. she denies any fever, n/v/d, chills, body aches, shortness of breath, chest pain. Last medical history of TIA, DVT, PE, lupus, hypothyroidism. she is on eliquis. Allergy to iron and carbamazepine. She last had a mammogram 3 years ago which she reports was normal. She last saw her EMPLOYEE COUNSELOR in January and had a clinical breast exam at that time which she states was normal. Vitals are stable. 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 Discussed case with Dr. Chicas, ER attending who advised to order CT scans. Labs with hypokalemia, repleted with Bina, discussed primary care follow-up for recheck. CT neck with contrast: 1. No significant adenopathy appreciated on this CT of neck. CT chest with contrast: 1. Enlarged nodes right axilla greater than left axilla with associated inflammation on the right. Nodes are favored to be inflammatory/reactive. 2. Incidental pulmonary nodules. Discussed all results with patient answer questions. Discussed the importance of outpatient follow-up and patient was given her CT report. Advised patient Please follow-up with your primary care doctor. Please take your CT report with you to your primary care doctor. Take medication as prescribed. Return to emergency room for any new or worsening symptoms. please have your potassium recheck with your primary care doctor. Critical care attestation.: If time is entered above; I have spent that time in minutes in the direct care of this critically ill patient, excluding procedure time. ED Disposition Clinical Impression: LAD (lymphadenopathy), axillary, Lung nodule, Hypokalemia Disposition: TO HOME OR SELFCARE Is pt being admited?: No Does the pt Need Aspirin: No Condition: Stable Instructions: Lymphadenopathy, Pulmonary Nodule Additional Instructions: Please follow-up with your primary care doctor. Please take your CT report with you to your primary care doctor. Take medication as prescribed. Return to emergency room for any new or worsening symptoms. please have your potassium recheck with your primary care doctor. Prescriptions: Acetaminophen [Tylenol] 650 mg PO Q8HR PRN #20 capsule PRN Reason: moderate pain traMADoL [Ultram 50 MG tab] 50 mg PO Q6HR PRN #12 tablet PRN Reason: Pain , Severe (7-10) Referrals: your, primary care doctor [Other] - 2-3 Days Time of Disposition: 18:20 Print Language: SWEDISH
[2020-09-12 16:45] LABS: Alanine Aminotransferase 24 units/L (7-56); Albumin 4.4 g/dL (3.9-5); BUN/Creatinine Ratio 9; Blood Urea Nitrogen 7 mg/dL (7-17); Calcium 9.8 mg/dL (8.4-10.2); Hemolysis Index 10
[2020-09-12 16:52] LABS: Basophils # (Auto) 0.1 K/mm3 (0.0-0.1); Basophils % (Auto) 0.9 % (0.0-1.8); Eosinophils # (Auto) 0.1 K/mm3 (0.0-0.4); Eosinophils % (Auto) 2.1 % (0.0-4.3); Hematocrit 39.8 % (30.3-42.9); Hemoglobin 13.4 gm/dl (10.1-14.3); Lymphocytes # (Auto) 1.5 K/mm3 (1.2-5.4); Lymphocytes % (Auto) 25.8 % (13.4-35.0); Mean Corpuscular HGB Conc 34 % (30-34); Mean Corpuscular Volume 83 fl (79-97); Monocytes # (Auto) 0.6 K/mm3 (0.0-0.8); Monocytes % (Auto) 10.8 % (0.0-7.3); Platelet Count 327 K/mm3 (140-440); Red Blood Count 4.81 M/mm3 (3.65-5.03)
[2020-09-12] MEDS ORDERED: POTASSIUM CHLORIDE ER 20 MEQ TAB PO ONE ×2 (16:52→19:03)
--- NOTE | 2020-09-12 18:09 | Cat Scan Report ---
CT CHEST WITH CONTRAST INDICATION / CLINICAL INFORMATION: supraclavicular LAD, right axillary LAD. TECHNIQUE: Axial CT images were obtained through the chest after IV contrast. All CT scans at this [facility] are performed using CT dose reduction for ALARA by means of automated exposure control. COMPARISON: None available. FINDINGS: HEART: No significant abnormality. CORONARY ARTERY CALCIFICATION: None. THORACIC AORTA: No significant abnormality. MEDIASTINUM / MAY: No significantly enlarged nodes. PLEURA: No pleural effusion. No pneumothorax. LUNGS: No infiltrate. A few nodules at the right lung base of the maximum diameter of 7 mm. These are favored to be inflammatory. ADDITIONAL FINDINGS: Enlarged nodes right axilla with associated inflammation. The largest node measu res 1.5 cm in the greatest short axis dimension. Mildly prominent left axillary nodes without adjacen t inflammation. The largest measures 1 cm in the greatest short axis dimension. UPPER ABDOMEN: No significant abnormality. SKELETAL SYSTEM: No significant abnormality. IMPRESSION: 1. Enlarged nodes right axilla greater than left axilla with associated inflammation on the right. No [place] are favored to be inflammatory/reactive. 2. Incidental pulmonary nodules. INCIDENTAL PULMONARY NODULE RECOMMENDATION RECOMMENDATION: Solid Nodule size 6-8 mm -- Multiple - Low Risk Patient: CT at 3-6 months, then consider CT at 18-24 months - High Risk Patient: CT at 3-6 months, then CT at 18-24 month Note These recommendations do not apply to lung cancer screening, patients with immunosuppression, o r patients with known primary cancer. Note Newly detected indeterminate nodule in persons 35 years of age or older. Persons under the age of 35 should not receive follow-up unless there is a known primary cancer. Note Perifissural Nodule is a fissure-attached/subpleural, homogeneous, solid nodule that has smooth margins and an oval, lentiform, or triangular shape. They represent about 20% of nodules detected in lung cancer screening, are invariably benign, and do not require follow-up. Nodules 10 mm or larger (or those with suspicious features) will continue to be managed based on the size criteria. Low Risk Patient -- minimal or absent history of smoking and of other known risk factors. High Risk Patient -- history of smoking or of other known risk factors. Nodule dimensions are average of long and short axes, rounded to the nearest millimeter. Based on 2017 Fleischner Society Guidelines found in Radiology 2017 284:228-243. https://doi.org/10.1148/radiol.5082385529 https://www.ncbi.nlm.nih.gov/pmc/articles/OAW7382902/ Signer Name: Darrell Rayo MD Signed: 09/12/2020 6:04 PM Workstation Name: [id number]
--- NOTE | 2020-09-12 18:12 | Cat Scan Report ---
CT neck w con INDICATION / CLINICAL INFORMATION: 40 years Female; supraclavicular LAD and right neck swelling. TECHNIQUE: Contiguous thin cut axial images obtained through the neck following IV contrast. Sagittal and gonzalez l reconstructions performed by the technologist. All CT scans at this location are performed using CT dose reduction for ALARA by means of automated exposure control. COMPARISON: None available. FINDINGS: No evidence of metallic marker or vitamin E capsule to denote an area of interest. MUCOSAL SPACE: The nasopharynx, oropharynx and vallecula, oral cavity and floor of mouth, hypopharynx , and larynx are grossly normal. Parapharyngeal and retropharyngeal spaces are grossly normal. LYMPH NODES: No significant adenopathy appreciated. Scattered, mildly prominent lymph nodes are seen. No evidence of suppurative or necrotic node. SALIVARY GLANDS: Parotid, submandibular, and visualized sublingual glands are within normal limits. 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 No signs of nodule or cyst seen. PARANASAL SINUSES: Mild mucosal thickening in the mastoids. There is also mild mucosal thickening in the ethmoids. SPINE: No significant abnormality of the cervical spine appreciated. VASCULAR STRUCTURES: Vascular structures are grossly normal in appearance. ADDITIONAL FINDINGS: Dentition noted. IMPRESSION: 1. No significant adenopathy appreciated on this CT of neck. Signer Name: Jae Ng MD, III Signed: 09/12/2020 6:07 PM Workstation Name: [email or web address] [id number]
[2020-09-12 19:18] VITALS: BP 152/84
== END 2020-09-12 19:18 | disposition home or self-care (01) ==
LOC: ED 12:52
DX: R59.1 Generalized enlarged lymph nodes (principal); R91.1 Solitary pulmonary nodule; F31.9 Bipolar disorder, unspecified; E87.6 Hypokalemia; Z91.09 Other allergy status, other than to drugs and biological substances
CPT/HCPCS: 36415; 70491; 71260; 80053; 84703; 85025; 86140; 99284; Q9967

== ENCOUNTER 2020-09-14 21:25 | Emergency (ER) | payer OTHER ==
[2020-09-15 01:44] VITALS: BP 122/70
--- NOTE | 2020-09-15 01:48 | Emergency Department Report ---
- General Chief complaint: High BP Stated complaint: DIZZY/SHAKY/BP UP AND DOWN Time Seen by Provider: 09/15/20 00:53 Source: patient, RN notes reviewed, old records reviewed Mode of arrival: Ambulatory Limitations: No Limitations - History of Present Illness Initial comments: 40-year-old female with a past medical history of CVA in 2012, DVT, PE, bipolar disorder, iron deficiency anemia, and lupus presents to the hospital complains of generalized weakness and fatigue intermittently since 10 AM. Patient has had similar symptoms on and off for the past 1 month. Patient was unclear if fluctuations in her blood pressure were causing her symptoms. States her systolic blood pressure has been ranging from 103-140s. When his systolic pressure is in the low 100s she feels symptoms. Patient states to her are no aggravating or alleviating factors. When episodes of fatigue and weakness occurred she feels mild worsening shortness of breath and a funny feeling in her upper chest. Patient denies dyspnea on exertion, exertional chest pain, cough, fever, dysuria, or frequency. She does complain of some intermittent pain to left upper back worse with palpation and movement. Patient was seen here Tuesday for swelling to right axilla and had a CT neck and chest with IV contrast. CT chest significant for incidental pulmonary lung nodules, bilateral axillary lymphadenopathy right greater than left suspected to be inflammatory/reactionary axillary nodes. Patient states she was advised to follow-up with her rubber off/oncologist. Patient denies previous history of cancer buts sees hematology secondary to PE/DVT. Patient has discontinued Eliquis 6 days ago in preparation for upcoming dental procedure. - Related Data Home Medications Medication Instructions Recorded Confirmed Last Taken Apixaban [Eliquis] 2.5 mg PO BID 08/31/16 08/03/17 08/02/17 clonazePAM [ Klonopin] 0.5 mg PO BID 08/31/16 08/03/17 08/02/17 Levothyroxine [Synthroid] 100 mcg PO QAM 08/03/17 08/03/17 08/02/17 Pravastatin Sodium [Pravastatin] 10 mg PO QHS 08/03/17 08/03/17 08/02/17 Previous Rx's Medication Instructions Recorded Last Taken Type Levothyroxine [Synthroid] 150 mcg PO QAM #30 tablet 11/29/17 Unknown Rx Famotidine [Pepcid] 40 mg PO DAILY #10 tablet 01/27/18 Unknown Rx diphenhydrAMINE [Benadryl CAP] 50 mg PO Q8HR PRN #20 capsule 01/27/18 Unknown Rx predniSONE [Deltasone] 60 mg PO DAILY 4 Days tablet 01/27/18 Unknown Rx Ibuprofen [Motrin 800 MG tab] 800 mg PO Q8HR PRN #20 tablet 05/30/18 Unknown Rx Cetirizine HCl [Zyrtec 10mg tab] 10 mg PO DAILY #10 tablet 05/12/20 Unknown Rx Famotidine [Pepcid] 40 mg PO QHS #10 tablet 05/12/20 Unknown Rx Prednisone [predniSONE 10 mg 10 mg PO .TAPER #1 tab.ds.pk 05/12/20 Unknown Rx (6-Day Pack, 21 Tabs)] diphenhydrAMINE [Benadryl CAP] 25 mg PO Q8HR PRN #14 capsule 05/12/20 Unknown Rx Acetaminophen [Tylenol] 650 mg PO Q8HR PRN #20 capsule 09/12/20 Unknown Rx traMADoL [Ultram 50 MG tab] 50 mg PO Q6HR PRN #12 tablet 09/12/20 Unknown Rx Allergies Allergy/AdvReac Type Severity Reaction Status Date / Time iron dextran complex Allergy Severe Swelling Verified 07/29/18 13:00 carbamazepine [From Tegretol] Allergy Angioedema Verified 07/29/18 13:00 ED Review of Systems ROS: Stated complaint: DIZZY/SHAKY/BP UP AND DOWN Other details as noted in HPI Comment: All other systems reviewed and negative ED Past Medical Hx - Past Medical History Previous Medical History?: Yes Hx CVA: Yes (2011 TIA) Hx Congestive Heart Failure: No Hx Diabetes: No Hx Deep Vein Thrombosis: Yes Hx Pulmonary Embolism: Yes Hx Psychiatric Treatment: Yes (bipolar disorder) Hx Asthma: No Hx COPD: No Additional medical history: Iron deficency anemia LUPUS DVT. PE, endometriosis. 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 D&C, HYSTERECTOMY - Social History Smoking Status: Never Smoker - Medications Home Medications: Home Medications Medication Instructions Recorded Confirmed Last Taken Type Apixaban [Eliquis] 2.5 mg PO BID 08/31/16 08/03/17 08/02/17 History clonazePAM [ Klonopin] 0.5 mg PO BID 08/31/16 08/03/17 08/02/17 History Levothyroxine [Synthroid] 100 mcg PO QAM 08/03/17 08/03/17 08/02/17 History Pravastatin Sodium [Pravastatin] 10 mg PO QHS 08/03/17 08/03/17 08/02/17 History Levothyroxine [Synthroid] 150 mcg PO QAM #30 tablet 11/29/17 Unknown Rx Famotidine [Pepcid] 40 mg PO DAILY #10 tablet 01/27/18 Unknown Rx diphenhydrAMINE [Benadryl CAP] 50 mg PO Q8HR PRN #20 capsule 01/27/18 Unknown Rx predniSONE [Deltasone] 60 mg PO DAILY 4 Days tablet 01/27/18 Unknown Rx Ibuprofen [Motrin 800 MG tab] 800 mg PO Q8HR PRN #20 tablet 05/30/18 Unknown Rx Cetirizine HCl [Zyrtec 10mg tab] 10 mg PO DAILY #10 tablet 05/12/20 Unknown Rx Famotidine [Pepcid] 40 mg PO QHS #10 tablet 05/12/20 Unknown Rx Prednisone [predniSONE 10 mg 10 mg PO .TAPER #1 tab.ds.pk 05/12/20 Unknown Rx (6-Day Pack, 21 Tabs)] diphenhydrAMINE [Benadryl CAP] 25 mg PO Q8HR PRN #14 capsule 05/12/20 Unknown Rx Acetaminophen [Tylenol] 650 mg PO Q8HR PRN #20 capsule 09/12/20 Unknown Rx traMADoL [Ultram 50 MG tab] 50 mg PO Q6HR PRN #12 tablet 09/12/20 Unknown Rx ED Physical Exam - General Limitations: No Limitations - Other Other exam information: General: No acute distress Head: Atraumatic Eyes: normal appearance ENT: Moist mucous membranes Neck: Normal appearance, no midline tenderness Chest: Clear to auscultation bilaterally CV: Regular rate and rhythm Abdomen: Soft, normal bowel sounds, nontender, nondistended, no rebound or guarding Back: Normal inspection, tenderness to left upper lateral back Extremity: Right axilla with some mild swelling and tenderness without focal abscess, erythema, or warmth Neuro: Alert O x 3, no facial asymmetry, speech clear, no gross motor sensory deficit Psych: Appropriate behavior Skin: No rash ED Course Vital Signs 09/14/20 09/15/20 09/15/20 21:43 00:55 01:00 Temperature 98.4 F Pulse Rate 81 Respiratory 18 Rate Blood Pressure 146/87 O2 Sat by Pulse 100 100 99 Oximetry 09/15/20 09/15/20 09/15/20 01:16 01:30 01:36 Temperature 97.8 F Pulse Rate Respiratory Rate Blood Pressure 109/49 122/70 O2 Sat by Pulse 99 100 99 Oximetry - Reevaluation(s) Reevaluation #1: 09/15/20 02:24 Orthostatics unremarkable. Patient denies feeling lightheaded with standing. She also denies feeling any weakness at this time. ED Medical Decision Making - Lab Data Result diagrams: 09/15/20 01:12 09/15/20 01:12 Lab Results 09/15/20 09/15/20 09/15/20 Range/Units 01:12 01:12 01:12 WBC 5.6 (4.5-11.0) K/mm3 RBC 4.61 (3.65-5.03) M/mm3 Hgb 12.6 (10.1-14.3) gm/dl Hct 38.0 (30.3-42.9) % MCV 82 (79-97) fl MCH 27 L (28-32) pg MCHC 33 (30-34) % RDW 15.0 (13.2-15.2) % Plt Count 326 (140-440) K/mm3 Lymph % (Auto) 33.3 (13.4-35.0) % Forrest % (Auto) 9.5 H (0.0-7.3) % Eos % (Auto) 2.9 (0.0-4.3) % Baso % (Auto) 0.6 (0.0-1.8) % Lymph # (Auto) 1.9 (1.2-5.4) K/mm3 Forrest # (Auto) 0.5 (0.0-0.8) K/mm3 Eos # (Auto) 0.2 (0.0-0.4) K/mm3 Baso # (Auto) 0.0 (0.0-0.1) K/mm3 Seg Neutrophils % 53.7 (40.0-70.0) % Seg Neutrophils # 3.0 (1.8-7.7) K/mm3 Sodium 141 (137-145) mmol/L Potassium 3.8 D (3.6-5.0) mmol/L Chloride 99.6 (98-107) mmol/L Carbon Dioxide 32 H (22-30) mmol/L Anion Gap 13 mmol/L BUN 10 (7-17) mg/dL Creatinine 0.9 (0.6-1.2) mg/dL Estimated GFR > 60 ml/min BUN/Creatinine Ratio 11 % Glucose 104 H (65-100) mg/dL Calcium 9.4 (8.4-10.2) mg/dL Magnesium 1.90 (1.7-2.3) mg/dL Troponin T < 0.010 (0.00-0.029) ng/mL - EKG Data -: EKG Interpreted by Me EKG shows normal: sinus rhythm, ST-T waves (no stemi) Rate: normal (72) - EKG Data When compared to previous EKG there are: no significant change (Compared to 06/26/2020) - Medical Decision Making 40-year-old female presenting with i intermittent weakness and low blood pressure for the last 1 month. ED work-up unremarkable patient is asymptomatic during her ED stay and reports feeling better. Last dose of hydrochlorothiazide was the evening of September 13. Patient provided a copy of her labs and states she does have a copy of her CT report. She is scheduled for an appointment with her PMD this a.m. Patient advised to follow-up to discuss possible medication adjustment and reassessment by her doctor. Critical Care Time: No Critical care attestation.: If time is entered above; I have spent that time in minutes in the direct care of this critically ill patient, excluding procedure time. ED Disposition Clinical Impression: Generalized weakness, Chronic hypertension Disposition: DC-01 TO HOME OR SELFCARE Is pt being admited?: No Does the pt Need Aspirin: No Condition: Stable Instructions: Weakness, [id number], Managing Your Hypertension, Hypertension (ED) Additional Instructions: Follow-up with your doctor this morning as scheduled. Take your results with you to your visit. Return if symptoms worsen as indicated by your discharge instructions. Referrals: your, doctor [Other] - 08/09/21 Time of Disposition: 02:41 Heart Score - HEART Score History: Slightly suspicious EKG: Normal Age: < 45 Risk factors: > 3 risk factors or hx of atherosclerotic disease Troponin: < normal limit HEART Score: 2 - EKG Read Time Time EKG Completed: 01:26 EKG Read Time: 01:33
[2020-09-15 02:10] LABS: Basophils % (Auto) 0.6 % (0.0-1.8); Eosinophils # (Auto) 0.2 K/mm3 (0.0-0.4); Eosinophils % (Auto) 2.9 % (0.0-4.3); Hemoglobin 12.6 gm/dl (10.1-14.3); Lymphocytes # (Auto) 1.9 K/mm3 (1.2-5.4); Lymphocytes % (Auto) 33.3 % (13.4-35.0); Mean Corpuscular HGB Conc 33 % (30-34); Mean Corpuscular Volume 82 fl (79-97); Monocytes # (Auto) 0.5 K/mm3 (0.0-0.8); Monocytes % (Auto) 9.5 % (0.0-7.3); Platelet Count 326 K/mm3 (140-440); Red Blood Count 4.61 M/mm3 (3.65-5.03)
[2020-09-15 02:15] LABS: BUN/Creatinine Ratio 11; Blood Urea Nitrogen 10 mg/dL (7-17); Calcium 9.4 mg/dL (8.4-10.2); Hemolysis Index 0
--- NOTE | 2020-09-16 10:07 | Electrocardiograph Report ---
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
== END 2020-09-15 02:58 | disposition home or self-care (01) ==
LOC: ED 21:25
DX: I10 Essential (primary) hypertension (principal); R53.1 Weakness; F31.9 Bipolar disorder, unspecified; Z86.73 Personal history of transient ischemic attack (TIA), and cerebral infarction without residual deficits; Z86.711 Personal history of pulmonary embolism; Z86.718 Personal history of other venous thrombosis and embolism
CPT/HCPCS: 36415; 80048; 83735; 84484; 85025; 93005; 99283

== ENCOUNTER 2020-12-04 14:25 | Emergency (ER) | payer SELFPAY ==
[2020-12-04 14:47] VITALS: BP 128/75
[2020-12-04] MEDS ORDERED: IBUPROFEN 800 MG TAB PO ONE (15:26)
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
== END 2020-12-04 15:55 | disposition home or self-care (01) ==
LOC: ED 14:25
DX: S16.1XXA Strain of muscle, fascia and tendon at neck level, initial encounter (principal); S60.212A Contusion of left wrist, initial encounter; Z90.49 Acquired absence of other specified parts of digestive tract; F31.9 Bipolar disorder, unspecified; Z86.73 Personal history of transient ischemic attack (TIA), and cerebral infarction without residual deficits; Z88.8 Allergy status to other drugs, medicaments and biological substances; Z91.048 Other nonmedicinal substance allergy status; V89.2XXA Person injured in unspecified motor-vehicle accident, traffic, initial encounter; Y93.89 Activity, other specified; Y92.89 Other specified places as the place of occurrence of the external cause; Y99.8 Other external cause status
CPT/HCPCS: 99281

== ENCOUNTER 2020-12-24 05:51 | Emergency (ER) | payer SELFPAY ==
[2020-12-24 05:57] VITALS: BP 122/77
--- NOTE | 2020-12-24 06:02 | Emergency Department Report ---
ED General Adult HPI - General Chief complaint: Dyspnea/Respdistress Stated complaint: PAIN WHEN BREATHING ON THE LEFT SIDE Time Seen by Provider: 12/24/20 05:59 Source: patient, RN notes reviewed, old records reviewed Mode of arrival: Ambulatory Limitations: No Limitations - History of Present Illness Initial comments: This is a 40-year-old female. During the history and physical examination, I am chaperoned by Daphne Maciel Past medical history is complex, including hypothyroidism, obesity, TIA, pulmonary embolism, lupus, endometriosis, currently on Eliquis. Patient recently had a temporary cessation of Eliquis therapy, secondary to placement of a neurostimulator device done earlier on within the past week. She was off Eliquis from Tuesday, December 21, through Tuesday, the . She resumed Eliquis therapy yesterday. She presents to the ER today with a complaint of nontraumatic left-sided thoracic pain and pleurisy. Patient denies headache, neck pain, chest pain, abdominal pain, vomiting, diarrhea, urinary symptoms, loss of taste and smell. The patient reports multiple DVT/PE in the past. She denies additional injuries or complaints at this time -: Gradual, days(s) Location: back (Left lateral posterior thorax) Radiation: non-radiation Consistency: constant Improves with: rest Worsens with: other (Deep inspiration) - Related Data Home Medications Medication Instructions Recorded Confirmed Last Taken Apixaban [Eliquis] 2.5 mg PO BID 08/31/16 08/03/17 08/02/17 clonazePAM [ Klonopin] 0.5 mg PO BID 08/31/16 08/03/17 08/02/17 Pravastatin Sodium [Pravastatin] 10 mg PO QHS 08/03/17 08/03/17 08/02/17 Previous Rx's Medication Instructions Recorded Last Taken Type Levothyroxine [Synthroid] 150 mcg PO QAM #30 tablet 11/29/17 Unknown Rx Famotidine [Pepcid] 40 mg PO QHS #10 tablet 05/12/20 Unknown Rx Cyclobenzaprine [Flexeril] 10 mg PO TID PRN #10 tablet 12/04/20 Unknown Rx Ibuprofen [Motrin] 800 mg PO Q8HR PRN #30 tablet 12/04/20 Unknown Rx methylPREDNISolone [Medrol 4MG 4 mg PO FS #1 tab.ds.pk 12/04/20 Unknown Rx DOSEPAK (21 tabs)] Allergies Allergy/AdvReac Type Severity Reaction Status Date / Time iron dextran complex Allergy Severe Swelling Verified 07/29/18 13:00 carbamazepine [From Tegretol] Allergy Angioedema Verified 07/29/18 13:00 ED Review of Systems ROS: Stated complaint: PAIN WHEN BREATHING ON THE LEFT SIDE Other details as noted in HPI Constitutional: denies: fever Eyes: denies: eye discharge ENT: denies: epistaxis Respiratory: shortness of breath Cardiovascular: chest pain Gastrointestinal: denies: abdominal pain, hematemesis, melena, hematochezia Genitourinary: denies: dysuria Musculoskeletal: back pain Neurological: denies: weakness Hematological/Lymphatic: denies: easy bleeding ED Past Medical Hx - Past Medical History Previous Medical History?: Yes Hx CVA: Yes (2011 TIA) Hx Congestive Heart Failure: No Hx Diabetes: No Hx Deep Vein Thrombosis: Yes Hx Pulmonary Embolism: Yes Hx Psychiatric Treatment: Yes (bipolar disorder) Hx Asthma: No Hx COPD: No Additional medical history: Iron deficency anemia LUPUS DVT. PE, endometrios is. 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 D&C, HYSTERECTOMY - Social History Smoking Status: Never Smoker Substance Use Type: None - Medications Home Medications: Home Medications Medication Instructions Recorded Confirmed Last Taken Type Apixaban [Eliquis] 2.5 mg PO BID 08/31/16 08/03/17 08/02/17 History clonazePAM [ Klonopin] 0.5 mg PO BID 08/31/16 08/03/17 08/02/17 History Pravastatin Sodium [Pravastatin] 10 mg PO QHS 08/03/17 08/03/17 08/02/17 History Levothyroxine [Synthroid] 150 mcg PO QAM #30 tablet 11/29/17 Unknown Rx Famotidine [Pepcid] 40 mg PO QHS #10 tablet 05/12/20 Unknown Rx Cyclobenzaprine [Flexeril] 10 mg PO TID PRN #10 tablet 12/04/20 Unknown Rx Ibuprofen [Motrin] 800 mg PO Q8HR PRN #30 tablet 12/04/20 Unknown Rx methylPREDNISolone [Medrol 4MG 4 mg PO FS #1 tab.ds.pk 12/04/20 Unknown Rx DOSEPAK (21 tabs)] ED Physical Exam - General Limitations: No Limitations General appearance: alert, in no apparent distress, obese - Head Head exam: Present: atraumatic, normocephalic - Eye Eye exam: Present: normal appearance, EOMI. Absent: nystagmus - ENT ENT exam: Present: normal exam, normal orophraynx, mucous membranes moist, normal external ear exam - Neck Neck exam: Present: normal inspection, full ROM. Absent: tenderness, meningismus - Respiratory Respiratory exam: Present: decreased breath sounds. Absent: respiratory distress, wheezes, rales, rhonchi, stridor - Cardiovascular Cardiovascular Exam: Present: regular rate, normal rhythm, normal heart sounds. Absent: bradycardia, tachycardia, irregular rhythm, systolic murmur, diastolic murmur, rubs, gallop - GI/Abdominal GI/Abdominal exam: Present: soft. Absent: distended, tenderness, guarding, rebound, rigid, pulsatile mass - Extremities Exam Extremities exam: Present: normal inspection, full ROM, other (2+ pulses noted in the bilateral upper and lower extremities. There is no palpable cord. negative Homans sign. Muscular compartments are soft. The pelvis is stable.). Absent: pedal edema, calf tenderness - Back Exam Back exam: Present: normal inspection, full ROM. Absent: tenderness, CVA tenderness (R), CVA tenderness (L), paraspinal tenderness, vertebral tenderness - Neurological Exam Neurological exam: Present: alert, oriented X3, other (No facial droop. Tongue midline. Extraocular movements intact bilaterally. Facial sensation intact to light touch in V1, V2, V3 distribution bilaterally. 5 and a 5 strength in 4 extremities. Sensation intact to light touch in 4 extremities.). Absent: motor sensory deficit - Psychiatric Psychiatric exam: Present: normal affect, normal mood - Skin Skin exam: Present: warm, dry, intact, normal color. Absent: rash ED Course Vital Signs 12/24/20 05:55 Temperature 98.5 F Pulse Rate 76 Respiratory 18 Rate Blood Pressure 122/77 O2 Sat by Pulse 100 Oximetry ED Medical Decision Making - Lab Data Vital Signs 12/24/20 05:55 Temperature 98.5 F Pulse Rate 76 Respiratory 18 Rate Blood Pressure 122/77 O2 Sat by Pulse 100 Oximetry - Medical Decision Making Differential diagnosis, including but not limited to: Pulmonary embolism, pneumonia, pneumothorax, and urinary tract infection, sprain, strain Assessment and plan: 40-year-old female, who is afebrile, with reassuring vital signs, supposed to be on lifelong anticoagulation who discontinued anticoagulation to have a neuro stim device, now presenting with pleuritic thoracic pain. Patient presents as awake, alert, oriented, sober of sound mind and exhibits decision-making capacity. I discussed the recommended plan of care with the patient, including EKG, laboratory studies, x-ray the chest, and diagnostic work-up. Patient agreeable to the plan of care. At an uncertain/unknown point in time, the patient eloped from the emergency room, and did not answer when called Critical care attestation.: If time is entered above; I have spent that time in minutes in the direct care of this critically ill patient, excluding procedure time. ED Disposition Clinical Impression: Pleuritic pain Disposition: 07 LEFT AWOL/ELOPED Is pt being admited?: No Does the pt Need Aspirin: No Condition: Undetermined Instructions: Nonspecific Chest Pain, Adult
[2020-12-24] MEDS ORDERED: ACETAMINOPHEN 325 MG TAB PO STA (07:39)
== END 2020-12-24 09:15 | disposition left against medical advice (07) ==
LOC: ED 05:51
DX: R07.81 Pleurodynia (principal); Z90.49 Acquired absence of other specified parts of digestive tract; F31.9 Bipolar disorder, unspecified
CPT/HCPCS: 99281

== ENCOUNTER 2021-02-12 23:31 | Emergency (ER) | payer BC ==
--- NOTE | 2021-02-13 01:18 | Emergency Department Report ---
HPI - General Chief Complaint: Arrhythmia/Palpitations Time Seen by Provider: 02/13/21 00:59 - HPI HPI: 40-year-old -[place] female presents to the emergency department with complaint of some palpitations this evening, feelings of her heart is racing. This woke her from sleep and then once awake the patient was checking her blood pressure and found it to be somewhat higher than usual. Usually she has a systolic blood pressure of about 120-130 while taking her hydrochlorothiazide. This evening it would go as high as a systolic of 150 and this was concerning to her. She called for EMS and they recommended that she independently come into the emergency department for evaluation. She has a history of previous PE and DVT for which she is currently anticoagulated on Eliquis, hypothyroidism. She denies any chest pain, fever, headache, lower extremity swelling, nausea, vomiting or diaphoresis. She has not taken anything for symptoms prior to presentation this evening. ED Past Medical Hx - Past Medical History Previous Medical History?: Yes Hx CVA: Yes (2011 TIA) Hx Congestive Heart Failure: No Hx Diabetes: No Hx Deep Vein Thrombosis: Yes Hx Pulmonary Embolism: Yes Hx Psychiatric Treatment: Yes (bipolar disorder) Hx Asthma: No Hx COPD: No Additional medical history: Iron deficency anemia LUPUS DVT. PE, endometriosis. 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 D&C, HYSTERECTOMY - Social History Smoking Status: Never Smoker Substance Use Type: None - Medications Home Medications: Home Medications Medication Instructions Recorded Confirmed Last Taken Type Apixaban [Eliquis] 2.5 mg PO BID 08/31/16 08/03/17 08/02/17 History clonazePAM [ Klonopin] 0.5 mg PO BID 08/31/16 08/03/17 08/02/17 History Pravastatin Sodium [Pravastatin] 10 mg PO QHS 08/03/17 08/03/17 08/02/17 History Levothyroxine [Synthroid] 150 mcg PO QAM #30 tablet 11/29/17 Unknown Rx Famotidine [Pepcid] 40 mg PO QHS #10 tablet 05/12/20 Unknown Rx Cyclobenzaprine [Flexeril] 10 mg PO TID PRN #10 tablet 10/28/21 Unknown Rx Ibuprofen [Motrin] 800 mg PO Q8HR PRN #30 tablet 12/04/20 Unknown Rx methylPREDNISolone [Medrol 4MG 4 mg PO FS #1 tab.ds.pk 12/04/20 Unknown Rx DOSEPAK (21 tabs)] ED Review of Systems ROS: Stated complaint: HEART RACING Other details as noted in HPI Comment: All other systems reviewed and negative Constitutional: denies: chills, fever Eyes: denies: eye pain, vision change ENT: denies: ear pain, throat pain Respiratory: denies: cough, shortness of breath Cardiovascular: palpitations. denies: chest pain, edema Gastrointestinal: denies: abdominal pain, vomiting Genitourinary: denies: dysuria, discharge Musculoskeletal: denies: back pain, arthralgia Skin: denies: rash, lesions Neurological: denies: headache, weakness Physical Exam - Physical Exam Vital Signs: Vital Signs 02/12/21 23:33 Temperature 98.2 F Pulse Rate 81 Respiratory 18 Rate Blood Pressure 133/91 O2 Sat by Pulse 100 Oximetry Physical Exam: GENERAL: The patient is well-developed well-nourished. HENT: Normocephalic. Atraumatic. Patient has moist mucous membranes. EYES: Extraocular motions are intact. NECK: Supple. Trachea is midline. CHEST/LUNGS: Clear to auscultation. There is no respiratory distress noted. HEART/CARDIOVASCULAR: Regular. There is no tachycardia. There is no murmur. ABDOMEN: Abdomen is soft, nontender. Patient has normal bowel sounds. There is no abdominal distention. SKIN: Skin is warm and dry. NEURO: The patient is awake, alert, and oriented. The patient is cooperative. The patient has no focal neurologic deficits. Normal speech. Cranial nerves II through XII grossly intact. MUSCULOSKELETAL: There is no tenderness or deformity. There is no limitation range of motion. ED Course Vital Signs 02/12/21 23:33 Temperature 98.2 F Pulse Rate 81 Respiratory 18 Rate Blood Pressure 133/91 O2 Sat by Pulse 100 Oximetry ED Medical Decision Making - Lab Data Result diagrams: 02/13/21 01:22 Lab Results 02/13/21 Range/Units 01:22 Sodium 140 (137-145) mmol/L Potassium 4.3 (3.6-5.0) mmol/L Chloride 99.9 (98-107) mmol/L Carbon Dioxide 28 (22-30) mmol/L Anion Gap 16 mmol/L BUN 10 (7-17) mg/dL Creatinine 0.8 (0.6-1.2) mg/dL Estimated GFR > 60 ml/min BUN/Creatinine Ratio 13 % Glucose 98 (65-100) mg/dL Calcium 10.4 H (8.4-10.2) mg/dL - EKG Data -: EKG Interpreted by Me EKG shows normal: sinus rhythm, axis, intervals, QRS complexes, ST-T waves (Flattening of the T waves) Rate: normal - EKG Data When compared to previous EKG there are: no significant change Interpretation: unchanged when compared t (09/15/20) - Medical Decision Making This patient presents to the emergency department with a complaint of having some palpitations that woke her up from sleep and then concern over her blood pressure. Patient's vital signs have been unremarkable in this emergency department including being afebrile. On examination she has normal sending heart and lungs to auscultation. She does not appear in any respiratory or acute distress. EKG does not have any morphology consistent with ST elevation myocardial infarction or any arrhythmia. It is also unchanged from previous. T he patient had a metabolic panel that did not show any electrolyte derangements. She was reevaluated multiple times and has remained stable without any further palpitations. She was seen ambulatory in the emergency department and both appears and feels stable. For all these reasons the patient appears safe for discharge home at this time. She has been instructed to follow-up with primary care and has been given outpatient referral for cardiology. Critical Care Time: No Critical care attestation.: If time is entered above; I have spent that time in minutes in the direct care of this critically ill patient, excluding procedure time. ED Disposition Clinical Impression: Palpitations Disposition: 01 HOME / SELF CARE / HOMELESS Is pt being admited?: No Condition: Stable Instructions: Palpitations Additional Instructions: Please follow-up with your primary care physician in the next few days. I have given you a referral for a local data examination clerk, Dr. Leon, to follow-up regarding the palpitations. Try to avoid any excessive caffeine use and try to get 8 hours of uninterrupted sleep at night. Return to the emergency department with any worsening of your symptoms, new or concerning symptoms not addressed during this current emergency department visit, or with any acute distress. Referrals: PRIMARY CARE, [Primary Care Provider] - 3-5 Days ANGELINE LEON MD [Staff Physician] - 3-5 Days Forms: Work/School Release Form(ED) Time of Disposition: 02:55
[2021-02-13 01:57] LABS: BUN/Creatinine Ratio 13; Blood Urea Nitrogen 10 mg/dL (7-17); Calcium 10.4 mg/dL (8.4-10.2); Hemolysis Index 3
[2021-02-13 03:10] VITALS: BP 122/70
--- NOTE | 2021-02-13 13:13 | Electrocardiograph Report ---
[facility] Test Date: 2021-02-13 Test Time: 01:32:02 Pat Name: LIBBY BROWER Department: Room: Gender: F [employer]ke O[employer] Patcher: zuhair : 1980 Requested By: JUANCHO PRATER Order Number: [id number] Reading MD: Betito Sam Measurements Intervals [place] Rate: 73 P: 25 UT: 167 QRS: 61 QRSD: 81 T: -29 QT: 367 QTc: 406 Interpretive Statements Sinus rhythm Borderline T abnormalities, diffuse leads Compared to ECG 09/15/2020 01:26:17 No significant changes Electronically Signed On 02-13-2021 13:13:08 EST by Betito Sam
== END 2021-02-13 03:00 | disposition home or self-care (01) ==
LOC: ED 23:31
DX: R00.2 Palpitations (principal); Z86.73 Personal history of transient ischemic attack (TIA), and cerebral infarction without residual deficits; F31.9 Bipolar disorder, unspecified; N80.9 Endometriosis, unspecified; E03.9 Hypothyroidism, unspecified; Z90.49 Acquired absence of other specified parts of digestive tract; Z96.89 Presence of other specified functional implants; Z90.711 Acquired absence of uterus with remaining cervical stump; Z98.890 Other specified postprocedural states
CPT/HCPCS: 36415; 80048; 93005; 99283

== ENCOUNTER → 2021-03-13 | Outpatient (CLI) | payer BC, OTHER | END | disposition home or self-care (01) | LOC: SLR 11:00 | PROVIDERS: ATTEND Internal Medicine Critical Care Medicine | DX: G47.30 Sleep apnea, unspecified (principal) | CPT/HCPCS: 95810 ==

== ENCOUNTER 2021-05-11 11:00 | Outpatient (CLI) | payer OTHER | END 2021-05-11 11:01 | disposition home or self-care (01) | LOC: SLR 11:00 | PROVIDERS: ATTEND Internal Medicine Critical Care Medicine | DX: G47.33 Obstructive sleep apnea (adult) (pediatric) (principal) | CPT/HCPCS: 95811 ==